=== PATIENT | female | born 1965 | race Hispanic/Latino ===

== ENCOUNTER 2025-03-08 20:21 | Observation (INO) | payer OTHER, SELFPAY ==
--- NOTE | ~2025-03-08 | NM_ITS ---
EXAMINATION: NM pulmonary perfusion DATE: 03/09/2025 14:10 INDICATION: Elevated d-dimer TECHNIQUE: 5.5 mCi Tc-99m MAA by intravenous route. Scintigraphic images of the chest were obtained. COMPARISON: Chest radiograph dated 03/08/2025 FINDINGS: There is relatively homogeneous perfusion throughout the lungs. No discrete perfusion defect identifi ed. Cardiomegaly. IMPRESSION: 1. No perfusion defects. Very low probability for pulmonary embolism. 2. Cardiomegaly. Reviewed, dictated and finalized at location A.
--- NOTE | ~2025-03-08 | US_ITS ---
US venous doppler [facility] - 03/09/2025 14:18 CDT History: 59 years old Female with bilateral lower extremity pain and swelling. Real-time sonographic images of the bilateral lower extremity venous system were obtained. Color Dop pler sonography and spectral waveform analysis were performed. No prior studies for comparison. The bilateral sapheno-femoral junctions are patent. The bilateral common femoral, superficial femor al, popliteal and posterior tibial veins are compressible and without evidence of echogenic thrombus . Impression: No evidence of deep venous thrombosis Reviewed, dictated and finalized at location A. Impression: No evidence of deep venous thrombosis
--- NOTE | ~2025-03-08 | XR_ITS ---
CHEST RADIOGRAPH CLINICAL HISTORY: sob . COMPARISON: None available TECHNIQUE: Single portable view of the chest. FINDINGS The cardiomediastinal silhouette is unremarkable. Increased interstitial markings are identified bilaterally, findings suggesting moderate pulmonary va scular congestion. Blunting of the right costophrenic sulcus suggesting a small right-sided pleural effusion. The remainder of the lungs are clear. IMPRESSION: Moderate pulmonary vascular congestion with a small right-sided pleural effusion. Reviewed, dictated and finalized at location A. IMPRESSION: Moderate pulmonary vascular congestion with a small right-sided pleural effusio n.
[2025-03-08 20:23] VITALS: BP 165/57; PULSE 66; RESP 20; TEMP 36.6; O2SAT 98
--- NOTE | 2025-03-08 20:24 | ECG_ITS ---
Test Date: 2025-03-08 20:31:43 Measurements Intervals [place] Rate: 64 P: 21 GA: 140 QRS: 37 QRSD: 89 T: 136 QT: 361 QTc: 373 Interpretive Statements SINUS RHYTHM POSSIBLE INFERIOR MYOCARDIAL INFARCTION , PROBABLY OLD BORDERLINE ST-T WAVE ABNORMALITY- ANTEROLAT/HIGH LAT LEADS BASELINE ARTIFACT- I, AVL, V1-V2 ABNORMAL ECG No previous ECG available for comparison Electronically Signed On 03-09-2025 06:09:20 CDT by Johnny Robles D.O.
--- NOTE | 2025-03-08 20:39 | ED.GENADULT ---
HPI - General Adult General Chief complaint: Shortness of Breath/Dyspnea Stated complaint: SOB; CHF HISTORY History of Present Illness HPI narrative: 59-year-old female presents to the emergency department for evaluation for worsening exertional shortness of breath and intermittent chest pain. Patient reports he does have a primary history of CHF and lower extremity edema. Patient reports she has had worsening shortness breath over the course of the last few days and worsening lower extremity swelling over the last 3 days as well. Patient is primary Slovenian-speaking and some prefers to translate, translation services were offered but they declined. Related Data Home Medications ?Medication ?Instructions ?Recorded ?Confirmed ?Last Taken ?Type aspirin 81 mg chewable tablet 81 mg PO DAILY 03/08/25 03/08/25 Unknown History (Aspirin Childrens) atorvastatin 40 mg tablet 40 mg PO QPM 03/08/25 03/08/25 Unknown History blood sugar diagnostic ([facility] 03/08/25 03/08/25 Unknown History Verio test strips) calcitriol 0.25 mcg capsule 0.25 mcg PO .Q MWF 03/08/25 03/08/25 03/08/25 08:00 History 0.25 mcg carvedilol 25 mg tablet 25 mg PO BID 03/08/25 03/08/25 Unknown History ergocalciferol (vitamin D2) 1,250 1,250 mcg PO WEEKLY 03/08/25 03/08/25 Unknown History mcg (50,000 unit) capsule famotidine 20 mg tablet 20 mg PO BID 03/08/25 03/08/25 Unknown History furosemide 40 mg tablet 40 mg PO DAILY 03/08/25 03/08/25 Unknown History gabapentin 100 mg capsule 100 mg PO BID 03/08/25 03/08/25 Unknown History hydralazine 50 mg tablet 75 mg PO TID 03/08/25 03/08/25 Unknown History hydroxyzine HCl 25 mg tablet 25 mg PO Q6H PRN itching 03/08/25 03/08/25 Unknown History isosorbide mononitrate 60 mg 60 mg PO DAILY 03/08/25 03/08/25 Unknown History tablet,extended release 24 hr [facility] Del[facility] 03/08/25 03/08/25 Unknown History Plus Lancet) losartan 100 mg tablet 25 mg PO DAILY 03/08/25 03/08/25 Unknown History ondansetron 4 mg disintegrating 4 mg PO Q6H PRN nausea and vomiting 03/08/25 03/08/25 Unknown History tablet pantoprazole 40 mg tablet,delayed 40 mg PO DAILY 03/08/25 03/08/25 Unknown History release Allergies Allergy/AdvReac Type Severity Reaction Status Date / Time No Known Allergies Allergy Verified 03/08/25 20:48 Review of Systems Review of Systems: All systems reviewed & are unremarkable except as noted in HPI and below PMFSH Family History Family History (Updated 03/08/25 @ 23:13 by Mani Xiong RN) Other No significant past medical history Social History Social History Smoking status: Never smoker Alcohol intake: never Substance use: never Do You Feel Safe in your Home?: Yes Lack of Transportation: No Lack of Food: Never True Current Housing: I Have Housing Concerned About Future Housing: No Difficulty Paying Gas/Electric Bills: No Difficulty Paying for Meds: No Currently Unemployed: No Education: Decline to Answer Difficulty w/ Childcare or Family Care: No Spiritual care concerns: No Exam Narrative: APPEARANCE: Well appearing, no pain, no distress, well-nourished. HEAD: normocephalic, atraumatic. EYES: PERRLA/EOMI, conjunctivae clear. NOSE: Normal no drainage EARS:TMS clear with good light reflex. THROAT: Pharynx clear, no exudate. NECK: Supple. No adenopathy, no masses. RESPIRATORY: Airway patent, respirations nonlabored. Clear to auscultation bilaterally, no rales, rhonchi, wheezing. CARDIOVASCULAR: Regular rate and rhythm without murmurs rubs or gallops. ABDOMINAL: Soft, nontender, nondistended, normal bowel sounds MUSCULOSKELETAL: +2 lower extremity edema NEURO: Alert. Cranial nerves II through XII intact. Good gait. Good coordination SKIN: Warm, dry. Normal Color Course Vital Signs Vital signs: Vital Signs Temperature 98 F 03/08/25 20:23 Pulse Rate 66 03/08/25 20:23 Respiratory Rate 20 03/08/25 20:23 Blood Pressure 165/57 H 03/08/25 20:23 Pulse Oximetry 98 03/08/25 20:23 Oxygen Delivery Room Air 03/08/25 20:23 Temperature 98.3 F 03/09/25 00:00 Pulse Rate 66 03/09/25 00:00 Respiratory Rate 17 03/09/25 00:00 Blood Pressure 118/55 L 03/09/25 00:00 Pulse Oximetry 94 03/09/25 00:00 Oxygen Delivery Room Air 03/08/25 23:36 Medical Decision Making [facility] Narrative Medical decision making narrative: 59-year-old female present to the emergency department for evaluation for exertional shortness of breath lower extremity edema with history of CHF. Patient is currently afebrile with no leukocytosis hemoglobin of 9.6 with no known baseline on file. Patient's INR is 1.1. Patient has a creatinine of 3.55 any BUN of 43. Patient does have an elevated troponin at 0.036 with no evidence of acute STEMI on her EKG. [place] [address]. Patient's albumin is 2.7. Patient's chest x-ray does show evidence of pulmonary vascular congestion I small right-sided pleural effusion. Patient was treated with IV Lasix emergency department and case will be discussed with hospitalist for admission. Differential Diagnosis Differential Diagnosis: Pneumonia, CHF Vital Signs Vital Signs: Vital Signs Temperature 98 F 03/08/25 20:23 Pulse Rate 66 03/08/25 20:23 Respiratory Rate 20 03/08/25 20:23 Blood Pressure 165/57 H 03/08/25 20:23 Pulse Oximetry 98 03/08/25 20:23 Oxygen Delivery Room Air 03/08/25 20:23 Temperature 98.3 F 03/09/25 00:00 Pulse Rate 66 03/09/25 00:00 Respiratory Rate 17 03/09/25 00:00 Blood Pressure 118/55 L 03/09/25 00:00 Pulse Oximetry 94 03/09/25 00:00 Oxygen Delivery Room Air 03/08/25 23:36 Lab Data Lab results reviewed: Yes I reviewed the patient's lab results. 03/08/25 20:49 03/08/25 20:49 Labs: Lab Results 03/08/25 03/08/25 03/08/25 Range/Units 20:49 20:49 20:49 WBC 9.0 (4.5-10.0) K/mm3 RBC 3.65 L (4.2-5.4) M/mm3 Hgb 9.6 L (12.0-15.0) g/dL Hct 31.1 L (37.0-47.0) % MCV 85.2 (80-100) fl MCH 26.3 (26-34) pg MCHC 30.9 L (32-36) g/dl RDW 16.1 H (11.5-14.5) % Plt Count 274 (150-375) k/mm3 MPV 10.4 (7.4-10.4) fl Immature Gran % (Auto) 0.2 (0-0.5) % Neut % (Auto) 66.9 (45.5-73.1) % Lymph % (Auto) 21.1 (18.3-44.2) % Colbert % (Auto) 7.6 (2.6-8.5) % Eos % (Auto) 3.9 (0-4.4) % Baso % (Auto) 0.3 (0.2-1.2) % Lymph # (Auto) 1.90 (0.9-3.2) K/mm3 Colbert # (Auto) 0.7 H (0.1-0.6) K/mm3 Eos # (Auto) 0.4 H (0-0.3) K/mm3 Baso # (Auto) 0.0 (0.0-0.1) K/mm3 Abs Immat Gran (auto) 0.02 (0.00-0.031) K/mm3 Absolute Neuts (auto) 6.0 (1.3-6.7) K/mm3 Absolute Nucleated RBC 0.000 (0.0-0.012) K/mm3 Nucleated RBC % 0.0 (0.0-0.2) % PT 14.5 (11.1-14.7) Seconds INR 1.1 APTT 29.3 (22.3-36.8) Seconds Sodium 134 L (137-145) mmol/L Potassium 3.9 (3.4-5.0) mmol/L Chloride 107 (98-107) mmol/L Carbon Dioxide 23 (22-30) mmol/L Anion Gap 4 (4-12) mmol/L BUN 43 H (7-17) mg/dL Creatinine 3.55 H (0.7-1.0) mg/dL Estim Creat Clear Calc Not Reportable Estimated GFR 13 L (59 - ) Glucose 149 H (65-110) mg/dL Calcium 8.8 (8.4-10.2) mg/dL Total Bilirubin 0.2 (0.2-1.3) mg/dL AST 20 (14-36) U/L ALT 13 (6-35) U/L Alkaline Phosphatase 91 (38-126) U/L Troponin I 0.036 H* Cancelled (0.000-0.034) ng/mL NT-Pro-B Natriuret Pep 04329 H Cancelled (19.9-100) pg/mL Total Protein 5.6 L (6.3-8.2) g/dL Albumin 2.7 L (3.5-5.1) g/dL Influenza A (RT-PCR) (Negative) Influenza B (RT-PCR) (Negative) RSV (RT-PCR) (Negative) SARS-CoV-2 RNA (RT-PCR) (Negative) 03/08/25 Range/Units 21:15 WBC (4.5-10.0) K/mm3 RBC (4.2-5.4) M/mm3 Hgb (12.0-15.0) g/dL Hct (37.0-47.0) % MCV (80-100) fl MCH (26-34) pg MCHC (32-36) g/dl RDW (11.5-14.5) % Plt Count (150-375) k/mm3 MPV (7.4-10.4) fl Immature Gran % (Auto) (0-0.5) % Neut % (Auto) (45.5-73.1) % Lymph % (Auto) (18.3-44.2) % Colbert % (Auto) (2.6-8.5) % Eos % (Auto) (0-4.4) % Baso % (Auto) (0.2-1.2) % Lymph # (Auto) (0.9-3.2) K/mm3 Colbert # (Auto) (0.1-0.6) K/mm3 Eos # (Auto) (0-0.3) K/mm3 Baso # (Auto) (0.0-0.1) K/mm3 Abs Immat Gran (auto) (0.00-0.031) K/mm3 Absolute Neuts (auto) (1.3-6.7) K/mm3 Absolute Nucleated RBC (0.0-0.012) K/mm3 Nucleated RBC % (0.0-0.2) % PT (11.1-14.7) Seconds INR APTT (22.3-36.8) Seconds Sodium (137-145) mmol/L Potassium (3.4-5.0) mmol/L Chloride (98-107) mmol/L Carbon Dioxide (22-30) mmol/L Anion Gap (4-12) mmol/L BUN (7-17) mg/dL Creatinine (0.7-1.0) mg/dL Estim Creat Clear Calc Estimated GFR (59 - ) Glucose (65-110) mg/dL Calcium (8.4-10.2) mg/dL Total Bilirubin (0.2-1.3) mg/dL AST (14-36) U/L ALT (6-35) U/L Alkaline Phosphatase (38-126) U/L Troponin I (0.000-0.034) ng/mL NT-Pro-B Natriuret Pep (19.9-100) pg/mL Total Protein (6.3-8.2) g/dL Albumin (3.5-5.1) g/dL Influenza A (RT-PCR) Negative (Negative) Influenza B (RT-PCR) Negative (Negative) RSV (RT-PCR) Negative (Negative) SARS-CoV-2 RNA (RT-PCR) Negative (Negative) Imaging Data Radiologist's impression: Impressions Chest X-Ray 03/08/25 21:18 IMPRESSION: Moderate pulmonary vascular congestion with a small right-sided pleural effusion. Discharge Plan Discharge Clinical Impression: Congestive heart failure, Acute dyspnea, Elevated troponin Patient Disposition: Still a Patient Condition: Serious
[2025-03-08 20:45] VITALS: O2SAT 97
[2025-03-08] MEDS: ASPIRIN 81 MG CHEWABLE TABLET 324 MG PO (20:48)
[2025-03-08 21:01] LABS: Basophils Percent Auto 0.3 % (0.2-1.2); Eosinophils Absolute Auto 0.4 K/mm3 (0-0.3); Eosinophils Percent Auto 3.9 % (0-4.4); Hematocrit 31.1 % (37.0-47.0); Hemoglobin 9.6 g/dL (12.0-15.0); Immature Granulocyte Absolute 0.02 K/mm3 (0.00-0.031); Immature Granulocyte Percent A 0.2 % (0-0.5); Lymphocytes Percent Auto 21.1 % (18.3-44.2); Mean Corpuscular HGB Conc 30.9 g/dl (32-36); Mean Corpuscular Hemoglobin 26.3 pg (26-34); Mean Corpuscular Volume 85.2 fl (80-100); Mean Platelet Volume 10.4 fl (7.4-10.4); Monocytes Absolute Auto 0.7 K/mm3 (0.1-0.6); Monocytes Percent Auto 7.6 % (2.6-8.5); Neutrophils Percent Auto 66.9 % (45.5-73.1); Platelet Count Result 274 k/mm3 (150-375); Red Blood Count 3.65 M/mm3 (4.2-5.4); Red Cell Distribution Width 16.1 % (11.5-14.5)
[2025-03-08 21:12] LABS: Alanine Aminotransferase 13 U/L (6-35); Albumin Level 2.7 g/dL (3.5-5.1); Alkaline Phosphatase 91 U/L (38-126); Anion Gap 4 mmol/L (4-12); Aspartate Amino Transferase 20 U/L (14-36); Bilirubin,Total 0.2 mg/dL (0.2-1.3); Blood Urea Nitrogen 43 mg/dL (7-17); Calcium 8.8 mg/dL (8.4-10.2); Carbon Dioxide 23 mmol/L (22-30); Chloride 107 mmol/L (98-107); Estimated Glomerular Filt Rate 13; Glucose 149 mg/dL (65-110); Potassium 3.9 mmol/L (3.4-5.0); Sodium 134 mmol/L (137-145); Total Protein 5.6 g/dL (6.3-8.2)
[2025-03-08 21:17] LABS: INR 1.1; Prothrombin Time 14.5 Seconds (11.1-14.7)
[2025-03-08 21:18] LABS: Partial Thromboplastin Time 29.3 Seconds (22.3-36.8)
[2025-03-08] MEDS: FUROSEMIDE INJ 40 MG/4 ML VIAL IV PUSH (21:21)
[2025-03-08 21:26] LABS: NT Pro B Type Natriuretic Pept 24000 pg/mL (19.9-100); Troponin I 0.036 ng/mL (0.000-0.034)
[2025-03-08 21:59] LABS: Influenza A QL RT-PCR Negative (Negative); Influenza B QL RT-PCR Negative (Negative); RSV RNA, RT-PCR Negative (Negative); SARS-CoV-2 RNA PCR Negative (Negative)
[2025-03-08 22:43] VITALS: BP 155/75; PULSE 63; RESP 17; TEMP 36.6; O2SAT 97
[2025-03-08 23:10] VITALS: BMI 34.6
--- NOTE | 2025-03-08 23:10 | ADMGEN ---
This patient, Suzy Lion, was admitted to IMU Room 214-01. Patient/family oriented to hospital policies and general routines including ID bracelet, bed and alarms, visiting hours, pain management, procedures, bathroom and other care routines, personal items, smoking policy, room service/diet, and visiting hours. Information on how to activate the Rapid Response Team has been discussed. Patient/Family are encouraged to report perceived risks to care and to ask questions if they do not understand what they are told or what they should do.
[2025-03-08 23:11] VITALS: BP 181/67; PULSE 64; RESP 17; TEMP 36.8; O2SAT 98
[2025-03-08 23:36] VITALS: PULSE 64; RESP 17; O2SAT 98
[2025-03-09] VITALS (17 sets, daily range): BP systolic 118–195; BP diastolic 54–75; PULSE 58–97; RESP 16–20; TEMP 36.4–36.9; O2SAT 94–97
--- NOTE | 2025-03-09 | ECHO_ITS ---
Patient Info Name: Suzy Lion Age: 59 years : 02/14/1966 Gender: Female Ht: 60 in Wt: 177 lbs BSA: 1.88 m2 HR: 56 bpm BP: 144 / 54 mmHg Technical Quality: Good Exam Date: 03/09/2025 12:21 PM Patient Status: I Admit Date: 03/08/2025 Exam Type: CA echo dop color flow w con Complete two-dimensional, color flow and Doppler transthoracic echocardiogram is performed with contrast to opacify the left ventricle and to improve the deliniation of the left ventricle endocardial borders. Staff Referring Physician: Janet Ch Snack Steward: Zully Thomas Attending Provider: Janet Ch Contrast/Agitated Saline Contrast/Ag. Saline: Definity Amount: 2.00 ml Administered By: Zully Thomas Existing IV Access: Yes IV Access Condition: patent with no signs of infiltration Summary 1. Left ventricular chamber dimension is normal. 2. Left ventricular systolic function is normal, estimated at 50-55. 3. There is mildly increased left ventricular wall thickness. 4. The left ventricular diastolic function is grade I diastolic dysfunction. 5. Right ventricular systolic function is normal. 6. There is mild mitral valve regurgitation. 7. There is mild tricuspid valve regurgitation. 8. There is small pericardial effusion. Left Ventricle Left ventricular chamber dimension is normal. Left ventricular systolic function is normal, estimated at 50-55. There is mildly increased left ventricular wall thickness. The left ventricular diastolic function is grade I diastolic dysfunction. Right Ventricle Right ventricular chamber dimension is normal. Right ventricular systolic function is normal. Left Atria Left atrial chamber dimension is normal. Right Atria Right atrial chamber dimension is normal. Atrial Septum Intact interatrial septum visualized by color flow imaging. Aortic Valve The aortic valve is trileaflet. There is no aortic valve stenosis. There is no aortic valve regurgitation. Pulmonic Valve The pulmonic valve is not well visualized. There is trace pulmonic regurgitation. Mitral Valve There is mild mitral valve regurgitation. Tricuspid Valve There is mild tricuspid valve regurgitation. Pericardium/Pleural There is small pericardial effusion. Inferior Vena Cava Dilated inferior vena cava with >50% collapse upon inspiration consistent with elevated right atrial pressure, 8 mmHg. Aorta The aortic root size at the sinus of Valsalva is normal. Left Ventricular Outflow Tract Name Value Normal LVOT 2D LVOT Diameter 1.7 cm LVOT Doppler LVOT Peak Velocity 133 cm/s LVOT Peak Gradient 7 mmHg LVOT Mean Gradient 4 mmHg LVOT VTI 36 cm LVOT VTI/AV VTI Ratio 0.6 LVOT Stroke Volume 83 ml LVOT CO 4.3 l/min LVOT CI 2.3 l/min/m2 Pulmonic Valve Name Value Normal RVOT Doppler RVOT Peak Velocity 74 cm/s RVOT Peak Gradient 2 mmHg PV Doppler PV Peak Velocity 116 cm/s PV Peak Gradient 5 mmHg Mitral Valve Name Value Normal MV Diastolic Function MV E Peak Velocity 110 cm/s MV A Peak Velocity 94 cm/s MV E/A 1.2 MV Decel Time (PW) 192 ms MV Annular TDI MV E/e' (Septal) 18.8 MV E/e' (Lateral) 18.3 MV E/e' (Average) 18.6 Tricuspid Valve Name Value Normal TV Regurgitation Doppler TR Peak Velocity 266 cm/s TR Peak Gradient 28 mmHg Estimated PAP/RSVP RA Pressure 8 mmHg <=5 PA Systolic Pressure 36 mmHg <36 RV Systolic Pressure 36 mmHg <36 Aortic Valve Name Value Normal AV Doppler AV Peak Velocity 206 cm/s AV Peak Gradient 16 mmHg AV Mean Gradient 9 mmHg AV VTI 56 cm AV Area (Cont Eq VTI) 1.5 cm2 >=3.0 AV Area (Cont Eq Kelvin) 1.5 cm2 AV DI (Kelvin) 0.64 AV Regurgitation 2D LVOT Area 2.3 cm2 Ventricles Name Value Normal LV Dimensions 2D/MM IVS Diastolic Thickness (2D) 1.2 cm 0.6-1.0 LVID Diastole (2D) 5.3 cm 3.8-5.2 LVIW Diastolic Thickness (2D) 1.2 cm 0.6-0.9 LVID Systole (2D) 3.5 cm 2.2-3.5 LVOT Diameter 1.7 cm LV Mass (2D Cubed) 256.21 g 67.00-162.00 LV Mass Index (2D Cubed) 136 g/m2 43-95 Relative Wall Thickness (2D) 0.47 <=0.42 LV Fractional Shortening/Ejection Fraction 2D/MM LV Fractional Shortening (2D) 33 % 27-45 LV EF (2D Teichholz) 62 % LV Diastolic Volume (4C MOD) 131 ml LV EF (4C MOD) 35 % LV Diastolic Volume (2C MOD) 171 ml LV EF (2C MOD) 41 % LV Diastolic Volume (BP MOD) 149 ml 46-106 LV Diastolic Volume Index (BP MOD) 79 ml/m2 29-61 LV Systolic Volume (BP MOD) 94 ml 14-42 LV Systolic Volume Index (BP MOD) 50 ml/m2 8-24 LV EF (BP MOD) 37 % 54-74 LV Diastolic Length (4C) 9.3 cm LV Systolic Length (4C) 9.2 cm LV Stroke Volume (4C MOD) 46 ml Atria Name Value Normal LA Dimensions LA Volume (4C A-L) 55 ml LA Volume (BP A-L) 62 ml RA Dimensions RA Systolic Major [place] Length (4C) 6.0 cm 2.2-2.8 RA Area (4C) 20.1 cm2 <=18.0 Report Signatures
--- NOTE | 2025-03-09 07:29 | P.HP_ITS ---
H&P: HPI History of Present Illness Date/Time: 03/09/25 07:29 Chief Complaint: SOB/Chest pain Narrative: Patient with history of CHF HTN, HLD, GERD, CKD presented to hospital because of shortness of breath. Patient notes she suddenly started to have shortness of breath about 2 days ago and has been getting worse. She has been having dry cough. Has been having chills but denies any fever. Denies any orthopnea or PND Patient also complaining of bilateral leg swelling for a long time but has been worsening in past 3 days. In the ER lab test WBC 9, hemoglobin 9.6, creatinine 3.55, troponin 0.036 and proBNP 87173. Chest x-ray concerning for pulmonary edema. Treatment started with Lasix. Patient was admitted for further management at time of my exam she is feeling better. her breathing is getting better. denies chest pain, abd pain, N/V. will get Echo. continue Lasix. elevated D Dimer will get VQ scan Review of Systems Review of Systems: All systems reviewed & are unremarkable except as noted in HPI and below [facility] Family History Family History (Updated 03/08/25 @ 23:13 by Mani Xiong RN) Other No significant past medical history Social History Social History Smoking status: Never smoker Alcohol intake: never Substance use: never Do You Feel Safe in your Home?: Yes Lack of Transportation: No Lack of Food: Never True Current Housing: I Have Housing Concerned About Future Housing: No Difficulty Paying Gas/Electric Bills: No Difficulty Paying for Meds: No Currently Unemployed: No Education: Decline to Answer Difficulty w/ Childcare or Family Care: No Spiritual care concerns: No Meds Home Medications and Allergies Home Medications ?Medication ?Instructions ?Recorded ?Confirmed ?Type aspirin 81 mg chewable tablet 81 mg PO DAILY 03/08/25 03/08/25 History (Aspirin Childrens) atorvastatin 40 mg tablet 40 mg PO QPM 03/08/25 03/08/25 History blood sugar diagnostic ([facility] 03/08/25 03/08/25 History Verio test strips) calcitriol 0.25 mcg capsule 0.25 mcg PO .Q MWF 03/08/25 03/08/25 History carvedilol 25 mg tablet 25 mg PO BID 03/08/25 03/08/25 History ergocalciferol (vitamin D2) 1,250 1,250 mcg PO WEEKLY 03/08/25 03/08/25 History mcg (50,000 unit) capsule famotidine 20 mg tablet 20 mg PO BID 03/08/25 03/08/25 History furosemide 40 mg tablet 40 mg PO DAILY 03/08/25 03/08/25 History gabapentin 100 mg capsule 100 mg PO BID 03/08/25 03/08/25 History hydralazine 50 mg tablet 75 mg PO TID 03/08/25 03/08/25 History hydroxyzine HCl 25 mg tablet 25 mg PO Q6H PRN itching 03/08/25 03/08/25 History isosorbide mononitrate 60 mg 60 mg PO DAILY 03/08/25 03/08/25 History tablet,extended release 24 hr lancets 33 gauge ([facility] Delica 03/08/25 03/08/25 History Plus Lancet) losartan 100 mg tablet 25 mg PO DAILY 03/08/25 03/08/25 History ondansetron 4 mg disintegrating 4 mg PO Q6H PRN nausea and vomiting 03/08/25 03/08/25 History tablet pantoprazole 40 mg tablet,delayed 40 mg PO DAILY 03/08/25 03/08/25 History release Allergies Allergy/AdvReac Type Severity Reaction Status Date / Time No Known Allergies Allergy Verified 03/08/25 20:48 Vital Signs Vital Signs - 24 hr 03/08/25 20:23 03/08/25 20:45 03/08/25 22:43 Temperature 98 F 97.8 F Pulse Rate 66 63 Respiratory Rate 20 17 Blood Pressure 165/57 H 155/75 H Pulse Oximetry 98 97 97 Oxygen Delivery Room Air Room Air 03/08/25 23:11 03/08/25 23:36 03/09/25 00:00 Temperature 98.2 F 98.3 F Pulse Rate 64 64 65 Respiratory Rate 17 17 17 Blood Pressure 181/67 H 118/55 L Pulse Oximetry 98 98 94 Oxygen Delivery Room Air 03/09/25 00:00 03/09/25 02:00 03/09/25 03:44 Temperature 97.7 F Pulse Rate 66 62 62 Respiratory Rate 17 Blood Pressure 144/54 H Pulse Oximetry 95 Oxygen Delivery 03/09/25 03:46 03/09/25 04:00 03/09/25 06:00 Temperature Pulse Rate 62 58 L 62 Respiratory Rate 17 Blood Pressure Pulse Oximetry 95 Oxygen Delivery Room Air Exam Narrative: APPEARANCE: Well appearing, no pain, no distress, well-nourished. HEAD: normocephalic, atraumatic. EYES: PERRLA/EOMI, conjunctivae clear. NOSE: Normal no drainage EARS:TMS clear with good light reflex. THROAT: Pharynx clear, no exudate. NECK: Supple. No adenopathy, no masses. RESPIRATORY: Airway patent, respirations nonlabored. Clear to auscultation bi laterally, no rales, rhonchi, wheezing. CARDIOVASCULAR: Regular rate and rhythm without murmurs rubs or gallops. ABDOMINAL: Soft, nontender, nondistended, normal bowel sounds MUSCULOSKELETAL: +2 lower extremity edema NEURO: Alert. Cranial nerves II through XII intact. Good gait. Good coordination SKIN: Warm, dry. Normal Color H&P: Results Labs Labs: Short CBC 03/08/25 Range/Units 20:49 WBC 9.0 (4.5-10.0) K/mm3 Hgb 9.6 L (12.0-15.0) g/dL Hct 31.1 L (37.0-47.0) % Plt Count 274 (150-375) k/mm3 BMP 03/08/25 20:49 Sodium 134 L Potassium 3.9 Chloride 107 Carbon Dioxide 23 BUN 43 H Creatinine 3.55 H Glucose 149 H Calcium 8.8 Cardiac Enzymes 03/08/25 03/08/25 Range/Units 20:49 20:49 Troponin I 0.036 H* Cancelled (0.000-0.034) ng/mL Liver Function 03/08/25 Range/Units 20:49 Total Bilirubin 0.2 (0.2-1.3) mg/dL AST 20 (14-36) U/L ALT 13 (6-35) U/L Alkaline Phosphatase 91 (38-126) U/L Albumin 2.7 L (3.5-5.1) g/dL Assessment and Plan Assessment and plan (1) Elevated troponin: Code(s): R79.89 - Other specified abnormal findings of blood chemistry Status: Acute (2) Acute dyspnea: Code(s): R06.00 - Dyspnea, unspecified Status: Acute (3) Congestive heart failure: Code(s): I50.9 - Heart failure, unspecified Status: Acute (4) CKD (chronic kidney disease): Code(s): N18.9 - Chronic kidney disease, unspecified Status: Acute (5) Leg swelling: Code(s): M79.89 - Other specified soft tissue disorders Status: Acute (6) SOB (shortness of breath): Code(s): R06.02 - Shortness of breath Status: Acute (7) Hyponatremia: Code(s): E87.1 - Hypo-osmolality and hyponatremia Status: Acute (8) Elevated d-dimer: Code(s): R79.89 - Other specified abnormal findings of blood chemistry Status: Acute Plan SOb acute on chronic CHF elevated BNP CXR pulmonray edema Will get ECHO LAsix Daily weight , Intake and output Continue to monitor Leg swelling secondary to CHF Will get lower ext dopleer to R/O dvt in setting of elevated Ddimer Continue to monitor Elevated D Dimer could be normal in stting of kidney failure Will get lower ext dopller and V q scan CKD renally adjust meds
[2025-03-09] MEDS: ISOSORBIDE MONONITRATE 60 MG TAB.ER.24H PO (08:25)
[2025-03-09] MEDS: GABAPENTIN 100 MG CAPSULE PO ×2 (08:25→17:26)
[2025-03-09] MEDS: FUROSEMIDE INJ 40 MG/4 ML VIAL IV PUSH ×2 (08:25→20:20)
[2025-03-09] MEDS: carvediloL 25 MG TABLET PO ×2 (08:25→17:26)
[2025-03-09] MEDS: ASPIRIN 81 MG CHEWABLE TABLET PO (08:25)
[2025-03-09] MEDS: PANTOPRAZOLE 40 MG TABLET PO (08:25)
[2025-03-09 11:42] LABS: D Dimer 0.56 ug/mL (<0.48)
[2025-03-09] MEDS: PERFLUTREN LIPID MICROSPHERES 1.5 ML VIAL DILUTED TO 10 ML TOTAL VOLUME IV PUSH (12:00)
--- NOTE | 2025-03-09 13:04 | IVDEFINITY ---
Prior to administration of IV Definity the patient was educated on the risks and benefits of the imaging enhancing agent including potential adverse side effects. The patient verbalized understanding. Allergies were verified. No exclusion criteria were identified and at least one of the following inclusion criteria were met: 1) physician request, 2) patient technically difficult to image (per the [place] [employer] guidelines of two or more segments not discernable within the apical view), or 3) questionable left ventricular function. ?
[2025-03-09] MEDS: hydrALAZINE HCL 25 MG TABLET 75 MG PO (17:25)
[2025-03-09] MEDS: FAMOTIDINE 20 MG TABLET PO (17:26)
[2025-03-09] MEDS: ATORVASTATIN 40 MG TABLET PO (17:26)
[2025-03-10] VITALS (17 sets, daily range): BP systolic 120–139; BP diastolic 43–59; PULSE 61–69; RESP 17–20; TEMP 36.5–36.8; O2SAT 90–94
[2025-03-10] MEDS: hydrALAZINE HCL 20 MG/ML VIAL 10 MG IV PUSH (00:22)
[2025-03-10 04:32] LABS: Hematocrit 30.4 % (37.0-47.0); Hemoglobin 9.3 g/dL (12.0-15.0); Mean Corpuscular HGB Conc 30.6 g/dl (32-36); Mean Corpuscular Hemoglobin 26.4 pg (26-34); Mean Corpuscular Volume 86.4 fl (80-100); Mean Platelet Volume 11.1 fl (7.4-10.4); Platelet Count Result 255 k/mm3 (150-375); Red Blood Count 3.52 M/mm3 (4.2-5.4); Red Cell Distribution Width 15.9 % (11.5-14.5); White Blood Count 8.9 K/mm3 (4.5-10.0)
[2025-03-10 04:52] LABS: Anion Gap 2 mmol/L (4-12); Blood Urea Nitrogen 43 mg/dL (7-17); Calcium 8.4 mg/dL (8.4-10.2); Carbon Dioxide 24 mmol/L (22-30); Chloride 106 mmol/L (98-107); Estimated CRCL calculation 15 ml/min; Estimated Glomerular Filt Rate 14; Glucose 88 mg/dL (65-110); Potassium 3.7 mmol/L (3.4-5.0); Sodium 132 mmol/L (137-145)
[2025-03-10] MEDS: PANTOPRAZOLE 40 MG TABLET PO (07:56)
[2025-03-10] MEDS: ASPIRIN 81 MG CHEWABLE TABLET PO (07:56)
[2025-03-10] MEDS: ISOSORBIDE MONONITRATE 60 MG TAB.ER.24H PO (07:56)
[2025-03-10] MEDS: carvediloL 25 MG TABLET PO ×2 (07:56→17:14)
[2025-03-10] MEDS: FUROSEMIDE INJ 40 MG/4 ML VIAL IV PUSH ×2 (07:56→20:08)
[2025-03-10] MEDS: GABAPENTIN 100 MG CAPSULE PO ×2 (07:56→17:14)
[2025-03-10] MEDS: hydrALAZINE HCL 25 MG TABLET 75 MG PO (07:56)
[2025-03-10] MEDS: FAMOTIDINE 20 MG TABLET PO ×2 (07:57→17:14)
[2025-03-10] MEDS: calcitrioL 0.25 MCG CAPSULE PO (07:58)
--- NOTE | 2025-03-10 10:30 | PM.IMPN ---
Progress Note: A&P Assessment and Plan (1) Elevated troponin: Code(s): R79.89 - Other specified abnormal findings of blood chemistry Status: Acute (2) Acute dyspnea: Code(s): R06.00 - Dyspnea, unspecified Status: Acute (3) Congestive heart failure: Code(s): I50.9 - Heart failure, unspecified Status: Acute (4) CKD (chronic kidney disease): Code(s): N18.9 - Chronic kidney disease, unspecified Status: Acute (5) Leg swelling: Code(s): M79.89 - Other specified soft tissue disorders Status: Acute (6) SOB (shortness of breath): Code(s): R06.02 - Shortness of breath Status: Acute (7) Hyponatremia: Code(s): E87.1 - Hypo-osmolality and hyponatremia Status: Acute (8) Elevated d-dimer: Code(s): R79.89 - Other specified abnormal findings of blood chemistry Status: Acute Plan SOb acute on chronic Diastolic CHF elevated BNP CXR pulmonray edema ECHO G1D LAsix Daily weight , Intake and output Continue to monitor Leg swelling secondary to CHF lower ext Doppler neg for DVt Continue to monitor Elevated D Dimer could be normal in setting of kidney failure lower ext dopller and V q scan neg CKD renally adjust meds GERD PPI Subjective Date/time seen: 03/10/25 10:30 Interval history: Patient with history of CHF HTN, HLD, GERD, CKD presented to hospital because of shortness of breath. Patient notes she suddenly started to have shortness of breath about 2 days ago and has been getting worse. She has been having dry cough. Has been having chills but denies any fever. Denies any orthopnea or PND Patient also complaining of bilateral leg swelling for a long time but has been worsening in past 3 days. In the ER lab test WBC 9, hemoglobin 9.6, creatinine 3.55, troponin 0.036 and proBNP 42496. Chest x-ray concerning for pulmonary edema. Treatment started with Lasix. Patient was admitted for further management at time of my exam she is feeling better. her breathing is getting better. denies chest pain, abd pain, N/V. will get Echo. continue Lasix. elevated D Dimer will get VQ scan 03/10/25 Patient was seen and examined at bedside. she is feeling better. denies any chest pian, SOb, Abd pain,N/V. Echo showed G1D. Lower ext Doppler and VQ scan Neg. Will continue lasix. Review of Systems Review of Systems: All systems reviewed & are unremarkable except as noted in HPI and below Exam Narrative: APPEARANCE: Well appearing, no pain, no distress, well-nourished. HEAD: normocephalic, atraumatic. EYES: PERRLA/EOMI, conjunctivae clear. NOSE: Normal no drainage EARS:TMS clear with good light reflex. THROAT: Pharynx clear, no exudate. NECK: Supple. No adenopathy, no masses. RESPIRATORY: Airway patent, respirations nonlabored. Clear to auscultation bilaterally, no rales, rhonchi, wheezing. CARDIOVASCULAR: Regular rate and rhythm without murmurs rubs or gallops. ABDOMINAL: Soft, nontender, nondistended, normal bowel sounds MUSCULOSKELETAL: +2 lower extremity edema NEURO: Alert. Cranial nerves II through XII intact. Good gait. Good coordination SKIN: Warm, dry. Normal Color Objective Data Vital Signs Vital Signs: Vital Signs - 24 hr 03/09/25 12:00 03/09/25 12:00 03/09/25 12:00 Temperature 97.5 F L Pulse Rate 60 59 L 59 L Respiratory Rate 16 16 Blood Pressure 195/67 H Pulse Oximetry 97 97 Oxygen Delivery Room Air 03/09/25 14:00 03/09/25 16:00 03/09/25 16:00 Temperature 97.7 F Pulse Rate 61 58 L 62 Respiratory Rate 16 16 Blood Pressure 174/57 H Pulse Oximetry 97 97 Oxygen Delivery Room Air 03/09/25 16:00 03/09/25 17:26 03/09/25 18:00 Temperature Pulse Rate 62 60 70 Respiratory Rate Blood Pressure Pulse Oximetry Oxygen Delivery 03/09/25 20:00 03/09/25 20:00 03/09/25 20:00 Temperature 97.6 F Pulse Rate 97 59 L Respiratory Rate 17 Blood Pressure 168/63 H Pulse Oximetry 97 Oxygen Delivery Room Air 03/09/25 22:00 03/09/25 23:55 03/10/25 00:00 Temperature 98.4 F Pulse Rate 61 64 Respiratory Rate 16 Blood Pressure 172/64 H Pulse Oximetry 95 Oxygen Delivery Room Air 03/10/25 00:00 03/10/25 01:26 03/10/25 02:00 Temperature Pulse Rate 63 65 Respiratory Rate Blood Pressure 133/44 L Pulse Oximetry Oxygen Delivery 03/10/25 03:36 03/10/25 04:00 03/10/25 04:00 Temperature 97.7 F Pulse Rate 69 64 Respiratory Rate 17 Blood Pressure 120/55 L Pulse Oximetry 91 Oxygen Delivery Room Air 03/10/25 06:00 03/10/25 07:43 03/10/25 07:56 Temperature 98.2 F Pulse Rate 65 67 65 Respiratory Rate 18 Blood Pressure 139/59 L Pulse Oximetry 92 Oxygen Delivery 03/10/25 08:00 03/10/25 08:00 Temperature Pulse Rate 65 65 Respiratory Rate 18 Blood Pressure Pulse Oximetry 92 Oxygen Delivery Room Air Intake/Output Intake/Output: Intake & Output 03/07/25 03/08/25 03/09/25 03/10/25 23:59 23:59 23:59 23:59 Intake Total 1140 240 Output Total 900 1000 Balance 240 -760 Meds/Results Medications: Active Medications Generic Name Dose Route Start Last Admin Trade Name Freq PRN Reason Stop Dose Admin Aspirin 81 mg 03/09/25 09:00 03/10/25 07:56 Aspirin 81 Mg Chewable Tablet PO 81 mg DAILY MINNA Administration Atorvastatin Calcium 40 mg 03/09/25 18:00 03/09/25 17:26 Atorvastatin 40 Mg Tablet PO 40 mg QPM MINNA Administration Calcitriol 0.25 mcg 03/10/25 09:00 03/10/25 07:58 Calcitriol 0.25 Mcg Capsule PO 0.25 mcg [id number] MINNA Administration Carvedilol 25 mg 03/09/25 09:00 03/10/25 07:56 Carvedilol 25 Mg Tablet PO 25 mg BID MINNA Administration Ergocalciferol 1,250 mcg 03/16/25 09:00 Ergocalciferol (Vitamin D2) 1,250 Mcg (50,000 Units) Capsule PO WEEKLY MINNA Famotidine 20 mg 03/09/25 17:00 03/10/25 07:57 Famotidine 20 Mg Tablet PO 20 mg BID MINNA Administration Furosemide 40 mg 03/09/25 09:00 03/10/25 07:56 Furosemide Inj 40 Mg/4 Ml Vial IV PUSH 40 mg Q12HR MINNA Administration Gabapentin 100 mg 03/09/25 09:00 03/10/25 07:56 Gabapentin 100 Mg Capsule PO 100 mg BID MINNA Administration Hydralazine HCl 10 mg 03/10/25 00:09 03/10/25 00:22 Hydralazine Hcl 20 Mg/Ml Vial IV PUSH 10 mg Q6HR PRN Administration SBP >160 Hydralazine HCl 100 mg 03/10/25 13:00 Hydralazine Hcl 50 Mg Tablet PO TID MINNA Hydroxyzine HCl 25 mg 03/09/25 12:24 Hydroxyzine Hcl 25 Mg Tablet PO Q6H PRN itching Isosorbide Mononitrate 60 mg 03/09/25 09:00 03/10/25 07:56 Isosorbide Mononitrate 60 Mg Tab.Er.24h PO 60 mg DAILY MINNA Administration Miscellaneous Information 1 each 03/09/25 00:01 Vit D Weekly- What Day Due? XX 04/08/25 00:00 CLARIFY MINNA Ondansetron HCl 4 mg 03/09/25 12:24 Ondansetron Hcl Odt 4 Mg Tablet PO Q6H PRN nausea and vomiting Pantoprazole Sodium 40 mg 03/09/25 09:00 03/10/25 07:56 Pantoprazole 40 Mg Tablet PO 40 mg DAILY MINNA Administration Radiology Results: ITS Impressions Chest X-Ray 03/08/25 21:18 IMPRESSION: Moderate pulmonary vascular congestion with a small right-sided pleural effusion. Venous Doppler Study 03/09/25 14:18 Impression: No evidence of deep venous thrombosis Pulmonary Perfusion Imaging 03/09/25 15:33 IMPRESSION: 1. No perfusion defects. Very low probability for pulmonary embolism. 2. Cardiomegaly. Labs Labs: Laboratory Results - last 24 hr 03/09/25 03/10/25 11:13 03:57 WBC 8.9 RBC 3.52 L Hgb 9.3 L Hct 30.4 L MCV 86.4 MCH 26.4 MCHC 30.6 L RDW 15.9 H Plt Count 255 MPV 11.1 H D-Dimer 0.56 H Sodium 132 L Potassium 3.7 Chloride 106 Carbon Dioxide 24 Anion Gap 2 L BUN 43 H Creatinine 3.37 H Estim Creat Clear Calc 15 Estimated GFR 14 L Glucose 88 Calcium 8.4
[2025-03-10] MEDS: hydrALAZINE HCL 50 MG TABLET 100 MG PO ×2 (12:21→17:14)
[2025-03-10] MEDS: ATORVASTATIN 40 MG TABLET PO (17:14)
[2025-03-10] MEDS: hydrOXYzine HCL 25 MG TABLET PO (23:42)
[2025-03-11] VITALS (9 sets, daily range): BP systolic 116–150; BP diastolic 40–59; PULSE 61–67; RESP 16–18; TEMP 36.1–36.7; O2SAT 95–97
[2025-03-11 05:45] LABS: Hematocrit 29.1 % (37.0-47.0); Hemoglobin 8.9 g/dL (12.0-15.0); Mean Corpuscular HGB Conc 30.6 g/dl (32-36); Mean Corpuscular Hemoglobin 26.6 pg (26-34); Mean Corpuscular Volume 87.1 fl (80-100); Mean Platelet Volume 10.9 fl (7.4-10.4); Platelet Count Result 258 k/mm3 (150-375); Red Blood Count 3.34 M/mm3 (4.2-5.4); Red Cell Distribution Width 15.9 % (11.5-14.5); White Blood Count 7.2 K/mm3 (4.5-10.0)
[2025-03-11 05:59] LABS: Anion Gap 7 mmol/L (4-12); Blood Urea Nitrogen 47 mg/dL (7-17); Calcium 8.4 mg/dL (8.4-10.2); Carbon Dioxide 23 mmol/L (22-30); Chloride 104 mmol/L (98-107); Estimated CRCL calculation 15 ml/min; Estimated Glomerular Filt Rate 13; Glucose 127 mg/dL (65-110); Potassium 3.9 mmol/L (3.4-5.0); Sodium 134 mmol/L (137-145)
--- NOTE | 2025-03-11 08:53 | PC.NURSE ---
Patient's telemetry box showed rapid heart rate. Dr. Ch is present and bedside with RN. Patient is asymptomatic and vitals are stable. RN was told to order a STAT EKG on patient.
[2025-03-11] MEDS: PANTOPRAZOLE 40 MG TABLET PO (09:09)
[2025-03-11] MEDS: FUROSEMIDE INJ 40 MG/4 ML VIAL IV PUSH (09:09)
[2025-03-11] MEDS: ISOSORBIDE MONONITRATE 60 MG TAB.ER.24H PO (09:09)
[2025-03-11] MEDS: carvediloL 25 MG TABLET PO (09:09)
[2025-03-11] MEDS: FAMOTIDINE 20 MG TABLET PO (09:09)
[2025-03-11] MEDS: hydrALAZINE HCL 50 MG TABLET 100 MG PO ×2 (09:09→12:07)
[2025-03-11] MEDS: GABAPENTIN 100 MG CAPSULE PO (09:09)
[2025-03-11] MEDS: ASPIRIN 81 MG CHEWABLE TABLET PO (09:09)
--- NOTE | 2025-03-11 12:56 | ECG_ITS ---
Test Date: 2025-03-11 13:10:16 Measurements Intervals [place] Rate: 69 P: 30 [place]: 149 QRS: 37 QRSD: 89 T: 0 QT: 391 QTc: 419 Interpretive Statements SINUS RHYTHM BORDERLINE R WAVE PROGRESSION, ANTERIOR LEADS CONSIDER INFERIOR INFARCT, AGE INDETERMINATE BORDERLINE ST-T WAVE ABNORMALITY- ANTEROLAT/HIGH LAT LEADS ABNORMAL ECG Compared to ECG 03/08/2025 20:31:43 No significant changes Electronically Signed On 03-11-2025 13:40:40 CDT by Johnny Robles D.O.
--- NOTE | 2025-03-11 13:51 | PM.DS ---
DS: Admitting Diagnosis Discharge Date 03/11/25 Admitting Diagnosis SOB,Diastolic CHF exacerbation DS: Discharge Diagnosis Discharge Diagnosis (1) Elevated troponin: Code(s): R79.89 - Other specified abnormal findings of blood chemistry Status: Acute (2) Acute dyspnea: Code(s): R06.00 - Dyspnea, unspecified Status: Acute (3) Congestive heart failure: Code(s): I50.9 - Heart failure, unspecified Status: Acute (4) CKD (chronic kidney disease): Code(s): N18.9 - Chronic kidney disease, unspecified Status: Acute (5) Leg swelling: Code(s): M79.89 - Other specified soft tissue disorders Status: Acute (6) SOB (shortness of breath): Code(s): R06.02 - Shortness of breath Status: Acute (7) Hyponatremia: Code(s): E87.1 - Hypo-osmolality and hyponatremia Status: Acute (8) Elevated d-dimer: Code(s): R79.89 - Other specified abnormal findings of blood chemistry Status: Acute Plan SOb acute on chronic Diastolic CHF elevated BNP CXR pulmonray edema ECHO G1D LAsix Daily weight , Intake and output Continue to monitor Leg swelling secondary to CHF lower ext Doppler neg for DVt Continue to monitor Elevated D Dimer could be normal in setting of kidney failure lower ext dopller and V q scan neg CKD renally adjust meds GERD PPI DS: Summary Hospital Course Hospital Course: per HPI: Patient with history of CHF HTN, HLD, GERD, CKD presented to hospital because of shortness of breath. Patient notes she suddenly started to have shortness of breath about 2 days ago and has been getting worse. She has been having dry cough. Has been having chills but denies any fever. Denies any orthopnea or PND Patient also complaining of bilateral leg swelling for a long time but has been worsening in past 3 days. In the ER lab test WBC 9, hemoglobin 9.6, creatinine 3.55, troponin 0.036 and proBNP 19126. Chest x-ray concerning for pulmonary edema. Treatment started with Lasix. Patient was admitted for further management at time of my exam she is feeling better. her breathing is getting better. denies chest pain, abd pain, N/V. will get Echo. continue Lasix. elevated D Dimer . VQ scan neg 03/10/25 Patient was seen and examined at bedside. she is feeling better. denies any chest pian, SOb, Abd pain,N/V. Echo showed G1D. Lower ext Doppler and VQ scan Neg. Will continue lasix. 03/11/25 Patient was seen and examined at bedside. she is feeling better, denies chest pain, abd pain ,N/V. breathing improved. Status at Discharge Overall status at discharge: patient is progressing back to baseline Time Spent with Patient Time attestation: Total time spent providing and/or coordinating discharge services: Time spent: Greater than 30 minutes Exam Narrative: APPEARANCE: Well appearing, no pain, no distress, well-nourished. HEAD: normocephalic, atraumatic. EYES: PERRLA/EOMI, conjunctivae clear. NOSE: Normal no drainage EARS:TMS clear with good light reflex. THROAT: Pharynx clear, no exudate. NECK: Supple. No adenopathy, no masses. RESPIRATORY: Airway patent, respirations nonlabored. Clear to auscultation bilaterally, no rales, rhonchi, wheezing. CARDIOVASCULAR: Regular rate and rhythm without murmurs rubs or gallops. ABDOMINAL: Soft, nontender, nondistended, normal bowel sounds MUSCULOSKELETAL: +2 lower extremity edema NEURO: Alert. Cranial nerves II through XII intact. Good gait. Good coordination SKIN: Warm, dry. Normal Color DS: Data Data Completed and Pending Labs on day of discharge: Labs from last 24 hours 03/11/25 04:46 WBC 7.2 RBC 3.34 L Hgb 8.9 L Hct 29.1 L MCV 87.1 MCH 26.6 MCHC 30.6 L RDW 15.9 H Plt Count 258 MPV 10.9 H Sodium 134 L Potassium 3.9 Chloride 104 Carbon Dioxide 23 Anion Gap 7 BUN 47 H Creatinine 3.48 H Estim Creat Clear Calc 15 Estimated GFR 13 L Glucose 127 H Calcium 8.4 Discharge Plan Discharge Attending physician on discharge: Janet Ch Discharging Clinician: Janet Ch Anticipated Discharge Date/Time: 03/11/25 13:54 Patient Disposition: Home Activity: as tolerated Diet: heart healthy and other - see discharge instructions Discharge Instructions: please check your blood pressure and heart rate regularly and report to PCP. follow with cardiology clinic and nephrology clinic as outpatient follow fluid restriction to 1500/cc per day. check your weight daily and report to PCp if you are gaining more than 3 pounds. follow with repeat blood test in 2-3 days and report to PCP Patient Instructions: Antibiotic Form, Heart Failure (GEN), Chronic Kidney Disease (GEN) Patient Language: Icelandic Stand Alone Forms: General Discharge Information Follow-up/Referrals: Mohsen Erickson MD [Physician] - Call for Appointment Hu Cazares MD [Physician] - Call for Appointment Discharge Medications: Continued calcitriol 0.25 mcg capsule 0.25 mcg PO .Q MWF hydralazine 50 mg tablet 75 mg PO TID famotidine 20 mg tablet 20 mg PO BID losartan 100 mg tablet 25 mg PO DAILY ondansetron 4 mg tablet,disintegrating 4 mg PO Q6H PRN (Reason: nausea and vomiting) carvedilol 25 mg tablet 25 mg PO BID gabapentin 100 mg capsule 100 mg PO BID isosorbide mononitrate 60 mg tablet extended release 24 hr 60 mg PO DAILY furosemide 40 mg tablet 40 mg PO DAILY ergocalciferol (vitamin D2) 1,250 mcg (50,000 unit) capsule 1,250 mcg PO WEEKLY aspirin [Aspirin Childrens] 81 mg tablet,chewable 81 mg PO DAILY atorvastatin 40 mg tablet 40 mg PO QPM (DME) OneTouch Verio test strips Strip MISCELLANEOUS hydroxyzine HCl 25 mg tablet 25 mg PO Q6H PRN (Reason: itching) pantoprazole 40 mg tablet,delayed release (DR/EC) 40 mg PO DAILY (DME) lancets [OneTouch Delica Plus Lancet] 33 gauge misc MISCELLANEOUS Other Ambulatory Orders: Basic Metabolic Panel (Routine) Timeframe: 2 Days Location: Determined by Patient Ordered By: Janet Ch Date of admission: 03/08/25 22:10 Primary Care Provider: UNKNOWN,DOCTOR Admitting Provider: Adrianna Gallardo Attending physician on admission: Janet Ch Condition: Serious
== END 2025-03-11 15:07 | disposition home or self-care (01) ==
LOC: ANHED 21:31 → ANHIMU 22:34 → ANH2MED 03-10 23:27
PROVIDERS: Admitting Provider Internal Medicine; Emergency Provider Emergency Medicine; Visit Provider Internal Medicine
DX: I13.0 Hypertensive heart and chronic kidney disease with heart failure and stage 1 through stage 4 chronic kidney disease, or unspecified chronic kidney disease (principal); I50.33 Acute on chronic diastolic (congestive) heart failure; N18.9 Chronic kidney disease, unspecified; E87.1 Hypo-osmolality and hyponatremia; M79.89 Other specified soft tissue disorders; R79.89 Other specified abnormal findings of blood chemistry; E78.5 Hyperlipidemia, unspecified; K21.9 Gastro-esophageal reflux disease without esophagitis; Z20.822 Contact with and (suspected) exposure to COVID-19; Z79.82 Long term (current) use of aspirin; Z79.899 Other long term (current) drug therapy
CPT/HCPCS: 36415; 71045; 78580; 80048; 80053; 83880; 84484; 85025; 85027; 85380; 85610; 85730; 87637; 93005; 93970; 96374; 96376; 99285; A9270; A9540; C8929; G0378; G0379; J0360; J1938; Q9957

== ENCOUNTER 2025-03-15 08:41 | Inpatient (IN) | payer SELFPAY ==
[2025-03-15] VITALS (14 sets, daily range): BP systolic 141–195; BP diastolic 5–105; PULSE 61–75; RESP 13–20; TEMP 36.4–37.1; O2SAT 87–100; BMI 34.4
--- NOTE | ~2025-03-15 | XR_ITS ---
EXAMINATION: XR abdomen/kub 1V DATE: 03/18/2025 13:13 INDICATION: Abdominal pain TECHNIQUE: A supine view of the abdomen on 2 radiographs was obtained. COMPARISON: 03/15/2025 FINDINGS: Moderate to large amount of stool and small amount of gas scattered throughout the colon. No dilated gas-filled loops of small bowel to suggest obstruction. Multiple phleboliths in the pelvis. There are couple ovoid calcifications in the right lower quadrant and right grain of rice like appearance whic h on prior CT are within oriented along the fibers of the abdominal wall and abductor musculature as could be seen with cysticercosis. IMPRESSION: 1. Moderate to large amount of colonic stool which could be seen with constipation. No dilated bowel to suggest obstruction. 2. 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 Reviewed, dictated and finalized at location B. IMPRESSION: 1. Moderate to large amount of colonic stool which could be seen with constipat ion. No dilated bowel to suggest obstruction. 2. A couple intramuscular dystrophic calcifications with appearance suggestive of chronic muscular cysticercosis.
--- NOTE | ~2025-03-15 | XR_ITS ---
XR chest 2V Ordering provider: Camryn Salmon APRN History: 59 years Female with . shortness of breath, chest pain . Comparison: March 08, 2025 FINDINGS: MEDIASTINUM: The cardiac silhouette is moderately enlarged. Congestive azucena. LUNGS: No effusions or pneumothorax. Interstitial thickening bilaterally in the lower lobes and left midzone suggestive of pneumonitis versus pulmonary edema. OTHER: No free air under the diaphragm. IMPRESSION: Cardiomegaly with cardiac decompensation and pulmonary edema. Bibasilar atelectasis versus pneumonia more in the left side. Reviewed, dictated and finalized at location A. IMPRESSION: Cardiomegaly with cardiac decompensation and pulmonary edema. Bibasilar atelect asis versus pneumonia more in the left side.
--- NOTE | ~2025-03-15 | XR_ITS ---
EXAMINATION: XR chest 1V portable DATE: 03/18/2025 10:42 INDICATION: Chest heart failure, shortness of breath, cough and mid chest burning sensation TECHNIQUE: frontal view of the chest was obtained. COMPARISON: Chest radiograph dated 03/17/25 FINDINGS: Blunting at the bilateral cardiophrenic angles consistent with very small bilateral pleural effusions . Minimal streaky bibasilar atelectasis. No pulmonary edema or pneumothorax. Cardiomegaly. IMPRESSION: 1. Very small bilateral pleural effusions with mild bibasilar atelectasis. 2. Cardiomegaly. Reviewed, dictated and finalized at location B.
--- NOTE | ~2025-03-15 | CT_ITS ---
EXAMINATION: CT chest abdomen pelvis wo con DATE: 03/15/2025 17:21 INDICATION: abd pain . TECHNIQUE: Computed tomography (CT) of the chest, abdomen, and pelvis was performed without intraveno us contrast. Automated exposure control and iterative reconstruction technique were employed. The dos e-length product was 1019.09 mGy-cm. COMPARISON: None FINDINGS: CHEST: Thoracic aorta: No significant dilation. No dissection. Lung parenchyma and airways: Septal thickening. Vascular congestion. Peribronchovascular thickening a nd groundglass opacities. Scattered areas of linear atelectasis/scar. Patent airways. Thoracic inlet, axillae and chest wall: No thyroid or soft tissue mass. No axillary lymphadenopathy. Mild chest wall edema. Mediastinum: No mass or lymphadenopathy. Heart and pericardium: Marked cardiomegaly. Small pericardial effusion. Coronary artery calcifications: Mild. Pleura: Small bilateral pleural fluid collections. Thoracic bones: No acute osseous finding in the chest. ABDOMEN/PELVIS: Liver: Enlarged Biliary/Gallbladder: Gallbladder is normal. No bile duct dilation. Pancreas: No mass or duct dilation. Spleen: Normal. Adrenals:No mass. Kidneys: No suspicious mass, obstructing stone, or hydronephrosis. GI tract: Uncomplicated duodenal diverticulum. No small or large bowel dilation. Appendix not confide ntly visualized. Mesentery/Peritoneum: No ascites, mass, or free air. Retroperitoneum: No mass Pelvis: Normal urinary bladder. Enlarged uterus. Normal bilateral ovaries. Trace fluid in the deep pe lvis. Soft Tissues: Moderate trunk edema. Moderate sized fat-containing umbilical hernia. Abdominopelvic bones: No acute osseous finding in the abdomen/pelvis. IMPRESSION: Pulmonary opacities most likely representing pulmonary edema. Infection not excluded. Small bilateral pleural effusions. Cardiomegaly. Small pericardial effusion. Hepatomegaly. Enlarged uterus, probably secondary to fibroids. Trace free pelvic fluid. Moderate body wall edema. Reviewed, dictated and finalized at location K. IMPRESSION: Pulmonary opacities most likely representing pulmonary edema. Infection not exc luded. Small bilateral pleural effusions. Cardiomegaly. Small pericardial effusion. Hepatomegaly. Enlarged uterus, probably secondary to fibroids. Trace free pelvic fluid. Moderate body wall edema.
--- NOTE | ~2025-03-15 | CT_ITS ---
CLINICAL INDICATION: Increasing abdominal pain COMPARISON: 03/15/2025. TECHNIQUE: Multiple contiguous axial images of the abdomen and pelvis were performed without the admi nistration of intravenous contrast The dose-length product (DLP) was 496.96 mGy-cm. Automated exposure control and iterative reconstruction technique were employed. FINDINGS/OBSERVATIONS: Visualized lower thorax: Trace right-sided pleural effusion with adjacent compressive atelectasis. Bibasilar atelectasis is also noted. No consolidation is appreciated. The appearance of the bilateral lung bases is improved from 03/15/2025. The heart is enlarged, unchanged, with a small pericardial effusion, also unchanged. Redemonstration of a small hiatal hernia. Liver: The liver demonstrates heterogeneous attenuation and is enlarged measuring 20 cm in longitudinal dime nsion. Gallbladder and biliary system: The gallbladder is only minimally distended, and otherwise unremarkable. Pancreas: Limited evaluation of the pancreas secondary to the lack of intravenous contrast. Spleen: The spleen demonstrates homogeneous attenuation and is not enlarged. Kidneys: The bilateral kidneys are unremarkable, without hydronephrosis or renal calculi. Adrenal glands: Unremarkable. Gastrointestinal tract: Colonic diverticulosis without significant surrounding inflammatory change. Fecal stasis within the distal colon. Appendix: The appendix is of normal caliber (axial series, images 117 through 121). Vasculature: Densely calcified atherosclerotic disease at the origins of the celiac axis, superior mesenteric martin ry and inferior mesenteric artery without additional findings to suggest mesenteric ischemia. Lymph nodes: No pathologically enlarged or morphologically suspicious lymph nodes within the retroperitoneum or at the root of the mesentery. Pelvic structures: The bladder is decompressed, limiting its evaluation. The uterus is retroverted and retroflexed. No significant free fluid is identified within the pelvis. The ovaries are not visualized. Body wall and musculoskeletal: Significant anasarca, demonstrating progression from prior examination. Increase in size of the fat and likely omental containing umbilical hernia, which extends caudally al nayan the anterior abdominal wall. Age advanced degenerative disease within the lower thoracic and lumbosacral spines, specifically at t he level of L5/S1. There are bridging endplate osteophytes at multiple levels in the lower thoracic spine, consistent wi th diffuse idiopathic skeletal hyperostosis (DISH). IMPRESSION: Increase in size of the fat and likely omental containing umbilical hernia which extends caudally heather ng the anterior abdominal wall measuring 3.3 cm in cranial caudal descent on previous examination, no w measuring 5.3 cm. Clinical correlation is needed regarding point tenderness along the midline of the abdomen, at the le teresa of the umbilicus. Improved appearance of the bilateral lung bases, as detailed above. Worsening anasarca. Densely calcified atherosclerotic disease at the origins of the celiac axis, superior mesenteric martin ry and inferior mesenteric artery without additional findings to suggest mesenteric ischemia. Reviewed, dictated and finalized at location A. IMPRESSION: Increase in size of the fat and likely omental containing umbilical hernia whic h extends caudally along the anterior abdominal wall measuring 3.3 cm in crania l caudal descent on previous examination, now measuring 5.3 cm. Clinical correlation is needed regarding point tenderness along the midline of the abdomen, at the level of the umbilicus. Improved appearance of the bilateral lung bases, as detailed above. Worsening anasarca. Densely calcified atherosclerotic disease at the origins of the celiac axis, avelar perior mesenteric artery and inferior mesenteric artery without additional find ings to suggest mesenteric ischemia.
--- NOTE | ~2025-03-15 | NM_ITS ---
EXAMINATION: NM lung vent and perfusion DATE: 03/15/2025 13:40 INDICATION: Shortness of breath. Elevated d-dimer. TECHNIQUE: 10.3 mCi xenon-133 by inhalation and 5.1 mCi Tc-99m MAA by intravenous route. Scintigraph ic images of the chest were obtained. COMPARISON: Chest radiograph dated 03/15/2025 FINDINGS: There is homogeneous radiotracer activity throughout the lungs on the single breath ventilation seque nce. There are couple small perfusion defects at the lateral aspect of the superior segment of the ri ght lower lobe and the posterior segment of the right upper lobe. There is otherwise relatively homog eneous perfusion throughout the lungs. IMPRESSION: 1. Low probability for pulmonary embolism. Reviewed, dictated and finalized at location B.
--- NOTE | ~2025-03-15 | US_ITS ---
EXAM: RENAL ULTRASOUND HISTORY: CKD COMPARISON: None FINDINGS: RIGHT KIDNEY: 11.8 x 5.6 x 4.2 cm. The parenchyma of the right kidney is unremarkable in echogenicity and caliber. No hydronephrosis or renal calculi. LEFT KIDNEY: 11.4 x 5.4 x 5.1 cm No hydronephrosis or renal calculi. The parenchyma of the left kidney is unremarkable in echogenicity and caliber. BLADDER: Despite prolonged interrogation, neither ureteral jet were visualized. The bladder was minim ally distended, and otherwise unremarkable. IMPRESSION: No hydronephrosis or renal calculi. No sonographic evidence to suggest the presence of medical renal disease, as detailed above. Reviewed, dictated and finalized at location A. IMPRESSION: No hydronephrosis or renal calculi. No sonographic evidence to suggest the presence of medical renal disease, as de tailed above.
--- NOTE | ~2025-03-15 | XR_ITS ---
Portable chest x-ray Comparison: 03/15/2025 Clinical History: Dyspnea Findings: There is mild interstitial prominence bilaterally. Possible minimal right pleural effusion . Cardiomediastinal silhouette is stable. Bones and soft tissues are unremarkable. Impression: Possible minimal interstitial edema versus possibly chronic interstitial disease. Probable minimal right pleural effusion. Stable marked cardiomegaly. Pericardial effusion not excluded. Reviewed, dictated and finalized at location . Impression: Possible minimal interstitial edema versus possibly chronic interstitial diseas e. Probable minimal right pleural effusion. Stable marked cardiomegaly. Pericardial effusion not excluded.
--- NOTE | 2025-03-15 08:42 | ECG_ITS ---
Test Date: 2025-03-15 08:38:30 Measurements Intervals [place] Rate: 64 P: 33 [place]: 131 QRS: 31 QRSD: 90 T: -31 QT: 400 QTc: 414 Interpretive Statements SINUS RHYTHM CONSIDER INFERIOR INFARCT, AGE INDETERMINATE BORDERLINE ST-T WAVE ABNORMALITY- ANTEROLAT/HIGH LAT LEADS BASELINE ARTIFACT- I, II, III, AVR, AVL, V2 ABNORMAL ECG Compared to ECG 03/11/2025 13:10:16 No significant changes Electronically Signed On 03-15-2025 09:55:54 CDT by Johnny Robles D.O.
[2025-03-15 08:57] LABS: Hematocrit 30.8 % (37.0-47.0); Hemoglobin 9.2 g/dL (12.0-15.0); Immature Granulocyte Percent A 0.4 % (0-0.5); Immature Platelet Fraction Pct 2.4 % (0.9-11.2); Lymphocytes Absolute Auto 1.25 K/mm3 (0.9-3.2); Mean Corpuscular HGB Conc 29.9 g/dl (32-36); Mean Corpuscular Hemoglobin 26.4 pg (26-34); Mean Corpuscular Volume 88.3 fl (80-100); Nucleated Red Blood Cells Absolute Auto 0.000 K/mm3 (0.0-0.012); Nucleated Red Blood Cells Perc 0.0 % (0.0-0.2); Platelet Count Result 229 k/mm3 (150-375); Red Blood Count 3.49 M/mm3 (4.2-5.4); White Blood Count 7.9 K/mm3 (4.5-10.0)
[2025-03-15 09:06] LABS: Alanine Aminotransferase 11 U/L (6-35); Albumin Level 2.9 g/dL (3.5-5.1); Alkaline Phosphatase 83 U/L (38-126); Anion Gap 7 mmol/L (4-12); Aspartate Amino Transferase 23 U/L (14-36); Bilirubin,Total 0.4 mg/dL (0.2-1.3); Blood Urea Nitrogen 46 mg/dL (7-17); Calcium 8.7 mg/dL (8.4-10.2); Carbon Dioxide 22 mmol/L (22-30); Chloride 106 mmol/L (98-107); Estimated Glomerular Filt Rate 13; Glucose 112 mg/dL (65-110); Lipase 46 U/L (23-300); Potassium 3.7 mmol/L (3.4-5.0); Sodium 135 mmol/L (137-145); Total Protein 5.7 g/dL (6.3-8.2)
[2025-03-15 09:25] LABS: Hypochromasia 1+; Schistocytes None Seen
--- NOTE | 2025-03-15 09:26 | ED.SOB ---
HPI - SOB/Dyspnea General Chief Complaint: Abdominal Pain Stated Complaint: abd pain Time Seen by Provider: 03/15/25 09:01 History of Present Illness HPI Narrative: Patient is a 59-year-old , non-Citizen Of [place] speaking patient who presents to the ER with abdominal pain, shortness of breath, chest pain, and vomiting. She reports her symptoms have been going on for approximately 3 days. Patient reports she has a history of kidney and heart problems. She endorses intermittent back pain and vomiting when she's sleeping. Patient endorses orthopnea with exertion. She reports she was recently in the hospital for similar symptoms. Patient denies any current back pain, urinary symptoms, or recent fevers. Related Data Home Medications ?Medication ?Instructions ?Recorded ?Confirmed ?Last Taken ?Type aspirin 81 mg chewable tablet 81 mg PO DAILY 03/08/25 03/15/25 03/14/25 History (Aspirin Childrens) atorvastatin 40 mg tablet 40 mg PO QPM 03/08/25 03/15/25 03/14/25 History blood sugar diagnostic (OneTouch 03/08/25 03/15/25 Unknown History Verio test strips) calcitriol 0.25 mcg capsule 0.25 mcg PO .Q MWF 03/08/25 03/15/25 03/14/25 History carvedilol 25 mg tablet 25 mg PO BID 03/08/25 03/15/25 03/14/25 History ergocalciferol (vitamin D2) 1,250 1,250 mcg PO WEEKLY 03/08/25 03/15/25 Unknown History mcg (50,000 unit) capsule famotidine 20 mg tablet 20 mg PO BID 03/08/25 03/15/25 03/14/25 History furosemide 40 mg tablet 40 mg PO DAILY 03/08/25 03/15/25 03/14/25 History gabapentin 100 mg capsule 100 mg PO BID 03/08/25 03/15/25 03/14/25 History hydralazine 50 mg tablet 75 mg PO TID 03/08/25 03/15/25 03/14/25 History hydroxyzine HCl 25 mg tablet 25 mg PO Q6H PRN itching 03/08/25 03/15/25 Unknown History isosorbide mononitrate 60 mg 60 mg PO DAILY 03/08/25 03/15/25 03/14/25 History tablet,extended release 24 hr lancets 33 gauge ([place] Cornelius 03/08/25 03/15/25 Unknown History Plus Lancet) losartan 100 mg tablet 25 mg PO DAILY 03/08/25 03/15/25 03/14/25 History ondansetron 4 mg disintegrating 4 mg PO Q6H PRN nausea and vomiting 03/08/25 03/15/25 03/14/25 History tablet pantoprazole 40 mg tablet,delayed 40 mg PO DAILY 03/08/25 03/15/25 03/14/25 History release Allergies Allergy/AdvReac Type Severity Reaction Status Date / Time No Known Allergies Allergy Verified 03/15/25 09:13 Review of Systems Review of Systems: All systems reviewed & are unremarkable except as noted in HPI and below PMFSH Family History Family History Other No significant past medical history Social History Social History Smoking status: Never smoker Alcohol intake: never Substance use: never Do You Feel Safe in your Home?: Yes Lack of Transportation: No Lack of Food: Never True Current Housing: Decline to Answer Concerned About Future Housing: No Difficulty Paying Gas/Electric Bills: No Difficulty Paying for Meds: No Currently Unemployed: No Education: High School Diploma/GED Difficulty w/ Childcare or Family Care: No Spiritual care concerns: No Exam Narrative: GENERAL:Ill appearing, well-nourished, non-toxic, in no acute distress. HEAD: Normocephalic, atraumatic. NECK: Supple. No adenopathy, no masses. RESPIRATORY: Airway patent, respirations nonlabored. Clear to auscultation bilaterally, no rales, rhonchi, wheezing. CARDIOVASCULAR: Regular rate and rhythm without murmurs, rubs, or gallops. Peripheral pulses diminished, + lower extremity edema ABDOMINAL: Soft, nontender, nondistended, no hepatosplenomegaly. Normoactive BS. MUSCULOSKELETAL: Moves all extremities. Strength/ROM intact without gross deformities. SKIN: Warm, dry, normal color. No rashes. NEURO: A&O X3. Speech clear. Cranial nerves II-XII intact. No ataxic movements. PSYCHIATRIC: Appropriate mood and affect. Normal interaction. Course Vital Signs Vital signs: Vital Signs Temperature 97.9 F 03/15/25 08:44 Pulse Rate 66 03/15/25 08:44 Respiratory Rate 16 03/15/25 08:44 Blood Pressure 184/68 H 03/15/25 08:44 Pulse Oximetry 96 03/15/25 08:44 Oxygen Delivery Room Air 03/15/25 08:44 Temperature 98.5 F 03/15/25 16:26 Pulse Rate 68 03/15/25 18:00 Respiratory Rate 18 03/15/25 16:26 Blood Pressure 178/5 H 03/15/25 16:26 Pulse Oximetry 94 03/15/25 16:26 Oxygen Delivery Room Air 03/15/25 08:44 MDM - SOB/Dyspnea MDM Narrative Medical decision making narrative: Patient is a 59-year-old , non-Citizen Of [place] speaking patient who presents to the ER with abdominal pain, shortness of breath, chest pain, and vomiting. She reports her symptoms have been going on for approximately 3 days. Patient reports she has a history of kidney and heart problems. She endorses intermittent back pain and vomiting when she's sleeping. Patient endorses orthopnea with exertion. She reports she was recently in the hospital for similar symptoms. Patient denies any current back pain, urinary symptoms, or recent fevers. Labs Ordered: CBC, CMP, coags, D-dimer, UA, troponin, proBNP, lipase, UA, UDS Imaging Ordered: Chest x-ray, V/Q scan Medications Ordered: 1 L normal saline IV bolus (slow administration), Lasix 40 mg IV x2, morphine 2 mg IV Results: Pt's chest x-ray indicates Cardiomegaly with cardiac decompensation and pulmonary edema. Bibasilar atelectasis versus pneumonia more in the left side. Her CBC indicates a red blood cell count of 3.49, hemoglobin of 9.2, hematocrit of 30.8%. Patient's D-dimer is 0.86. Her coags indicated a PT 15.1. Patient's chemistry indicates a sodium of 135, BUN of 46, creatinine of 3.49, GFR of 30, glucose of 112, total protein of 5.7, albumin of 2[place] [address]. Patient's UA indicates a protein of 4+, glucose of 1+, trace ketones, red blood cell count of 6-10, and white blood cell count of 6 to 10. Her UDS was negative for any illicit substance use. Diagnosis: CHF exacerbation, elevated creatinine, shortness of breath Consults: 1100- Spoke with microsoft crm developer, Dr. Cazares, who reports he will consult on pt while she is in the hospital. Patient Education/Shared MDM: Results of lab work and imaging shared with patient. It was suggested pt be admitted to the hospital for further evaluation and treatment. She was in agreement with plan. Pt's oxygen saturation has started to decrease down to 86% while on room air. She bring her saturations up to 93%, but pt will be placed on 2L NC to keep her oxygen saturations above 95%. 1045- Spoke with hospitalist, Dr. Gaytan, who is in agreement with plan for admission. She will be admitted to the IMU. Dr. Gaytan requests pt receive another dose of Lasix. Differential Diagnosis Differential diagnosis: Likely acute exacerbation of chronic obstructive airways disease, congestive heart failure, community acquired pneumonia and pulmonary embolism Lab Data Attestation: I reviewed the patient's lab results. 03/15/25 08:48 03/15/25 08:48 Labs: Lab Results 03/15/25 03/15/25 Range/Units 08:48 09:37 WBC 7.9 (4.5-10.0) K/mm3 RBC 3.49 L (4.2-5.4) M/mm3 Hgb 9.2 L (12.0-15.0) g/dL Hct 30.8 L (37.0-47.0) % MCV 88.3 (80-100) fl MCH 26.4 (26-34) pg MCHC 29.9 L (32-36) g/dl RDW 15.7 H (11.5-14.5) % Plt Count 229 (150-375) k/mm3 MPV 11.0 H (7.4-10.4) fl Immature Gran % (Auto) 0.4 (0-0.5) % Neut % (Auto) 69.1 (45.5-73.1) % Lymph % (Auto) 15.9 L (18.3-44.2) % [place] % (Auto) 8.9 H (2.6-8.5) % Eos % (Auto) 5.1 H (0-4.4) % Baso % (Auto) 0.6 (0.2-1.2) % Lymph # (Auto) 1.25 (0.9-3.2) K/mm3 [place] # (Auto) 0.7 H (0.1-0.6) K/mm3 Eos # (Auto) 0.4 H (0-0.3) K/mm3 Baso # (Auto) 0.1 (0.0-0.1) K/mm3 Abs Immat Gran (auto) 0.03 (0.00-0.031) K/mm3 Absolute Neuts (auto) 5.4 (1.3-6.7) K/mm3 Absolute Nucleated RBC 0.000 (0.0-0.012) K/mm3 Band Neutrophils % Not Reportable Nucleated RBC % 0.0 (0.0-0.2) % Platelet Estimate Adequate (Adequate) % Immature Plt Fraction 2.4 (0.9-11.2) % Hypochromasia 1+ Schistocytes None seen PT 15.1 H (11.1-14.7) Seconds INR 1.2 APTT 34.4 (22.3-36.8) Seconds D-Dimer 0.86 H (<0.48) ug/mL Sodium 135 L (137-145) mmol/L Potassium 3.7 (3.4-5.0) mmol/L Chloride 106 (98-107) mmol/L Carbon Dioxide 22 (22-30) mmol/L Anion Gap 7 (4-12) mmol/L BUN 46 H (7-17) mg/dL Creatinine 3.49 H (0.7-1.0) mg/dL Estim Creat Clear Calc Not Reportable Estimated GFR 13 L (59 - ) Glucose 112 H (65-110) mg/dL Calcium 8.7 (8.4-10.2) mg/dL Magnesium 2.0 (1.6-2.3) mg/dL Total Bilirubin 0.4 (0.2-1.3) mg/dL AST 23 (14-36) U/L ALT 11 (6-35) U/L Alkaline Phosphatase 83 (38-126) U/L Troponin I 0.015 (0.000-0.034) ng/mL NT-Pro-B Natriuret Pep 62454 H (19.9-100) pg/mL Total Protein 5.7 L (6.3-8.2) g/dL Albumin 2.9 L (3.5-5.1) g/dL Lipase 46 (23-300) U/L Urine Color Yellow (Yellow) Urine Appearance Cloudy H (Clear) Urine pH 6.0 (5.0-9.0) Ur Specific [place] 1.021 (1.001-1.035) Urine Protein 4+ H (Negative) mg/dL Urine Glucose (UA) 1+ H (Negative) mg/dL Urine Ketones Trace H (Negative) mg/dL Ur Blood (Man) Trace (Negative) Urine Nitrate Negative (Negative) Urine Bilirubin Negative (Negative) Urine Urobilinogen 0.2 (<2.0) mg/dL Add Ur Microanalysis Reviewed Leukocyte Esterase Rfl Negative (Negative) CRISTELA/UL Urine RBC 6-10 H (0-2) /hpf Urine WBC 6-10 H (0-3) /hpf Ur Squamous Epith Cells Few (Few) /hpf Urine Bacteria None seen /hpf Urine Casts 11-20 Urine Opiates Screen Negative (Negative) Urine Methadone Screen Negative (Negative) Ur Barbiturates Screen Negative (Negative) Ur Phencyclidine Scrn Negative (Negative) Ur Amphetamine Screen Negative (Negative) U Benzodiazepines Scrn Negative (Negative) Urine Cocaine Screen Negative (Negative) U Cannabinoids Screen Negative (Negative) Discharge Plan Discharge Clinical Impression: Congestive heart failure, Renal insufficiency Patient Disposition: Still a Patient Condition: Stable
[2025-03-15 09:38] LABS: Magnesium 2.0 mg/dL (1.6-2.3)
[2025-03-15] MEDS: MORPHINE SULFATE (*CRX) 2 MG/ML INJ IV PUSH (09:44)
[2025-03-15] MEDS: SODIUM CHLORIDE 0.9% IV 1,000 ML 500 ML IV CONT (09:46)
[2025-03-15 09:50] LABS: NT Pro B Type Natriuretic Pept 23200 pg/mL (19.9-100); Troponin I 0.015 ng/mL (0.000-0.034)
[2025-03-15 10:00] LABS: INR 1.2; Prothrombin Time 15.1 Seconds (11.1-14.7)
[2025-03-15 10:01] LABS: Partial Thromboplastin Time 34.4 Seconds (22.3-36.8)
[2025-03-15 10:04] LABS: Add Urine Microscopic? YES; Appearance Urine Cloudy (Clear); Glucose Urine UA 1+ mg/dL (Negative); Leukocyte Esterase Ur Negative LEU/UL (Negative); Need Manual Microscopic Reviewed; Nitrate Urine Negative (Negative); Specific Grav Ur 1.021 (1.001-1.035)
[2025-03-15 10:07] LABS: Cannabinoid Screen Urine Negative (Negative)
[2025-03-15] MEDS: FUROSEMIDE INJ 40 MG/4 ML VIAL IV PUSH ×3 (10:27→16:31)
--- NOTE | 2025-03-15 11:19 | PC.NURSE ---
Pt reports pain to abdomen has lessened significantly. Pt is having episodes of O2 dropping to high 80s while resting, so RN placed pt on 2L NC at this time. Pt and relative updated on POC. They deny additional needs at this time. Respirations remain even and unlabored. No distress noted.
--- NOTE | 2025-03-15 12:05 | PC.NURSE ---
Arrived to the floor via stretcher from the ER. Vital signs obtained and stable at this time. 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 Denies pain or discomfort at this time. Chinese speaking only. Will review recent history for admission paperwork as patient was recently discharged.
--- NOTE | 2025-03-15 16:38 | PM.IMHP ---
H&P: HPI History of Present Illness Date/Time: 03/15/25 16:38 Chief Complaint: SOB, abd pain and vomiting Narrative: 59 yo female with PMH of CHF, DM2, CKD, and Hypertension who presented to ER on account of SOB and abd pain. Patient noted she has been having abd pain the past 3 days upper abdominal pain, 10/10 intensity, non radiating, associated with vomiting. Also complained of SOB and leg swelling. Noted that she is compliant with her medications. ER eval notable BP 184/68, on supplemental oxygen, labs notable for hb 9.2, Cr 3.49 which is baseline, NT-proBNP [id number], UDS negative. CXR showed cardiomegaly with cardiac decompensation and pulm edema. V/Q scan showed low for probability embolism. Patient was started on Lasix prior to admission. Review of Systems Review of Systems: All other systems were reviewed and negative except as noted in the HPI above. [facility] Family History Family History Other No significant past medical history Social History Social History Smoking status: Never smoker Alcohol intake: never Substance use: never Do You Feel Safe in your Home?: Yes Lack of Transportation: No Lack of Food: Never True Current Housing: Decline to Answer Concerned About Future Housing: No Difficulty Paying Gas/Electric Bills: No Difficulty Paying for Meds: No Currently Unemployed: No Education: High School Diploma/GED Difficulty w/ Childcare or Family Care: No Spiritual care concerns: No Meds Home Medications and Allergies Home Medications ?Medication ?Instructions ?Recorded ?Confirmed ?Type aspirin 81 mg chewable tablet 81 mg PO DAILY 03/08/25 03/15/25 History (Aspirin Childrens) atorvastatin 40 mg tablet 40 mg PO QPM 03/08/25 03/15/25 History blood sugar diagnostic (OneTouch 03/08/25 03/15/25 History Verio test strips) calcitriol 0.25 mcg capsule 0.25 mcg PO .Q MWF 03/08/25 03/15/25 History carvedilol 25 mg tablet 25 mg PO BID 03/08/25 03/15/25 History ergocalciferol (vitamin D2) 1,250 1,250 mcg PO WEEKLY 03/08/25 03/15/25 History mcg (50,000 unit) capsule famotidine 20 mg tablet 20 mg PO BID 03/08/25 03/15/25 History furosemide 40 mg tablet 40 mg PO DAILY 03/08/25 03/15/25 History gabapentin 100 mg capsule 100 mg PO BID 03/08/25 03/15/25 History hydralazine 50 mg tablet 75 mg PO TID 03/08/25 03/15/25 History hydroxyzine HCl 25 mg tablet 25 mg PO Q6H PRN itching 03/08/25 03/15/25 History isosorbide mononitrate 60 mg 60 mg PO DAILY 03/08/25 03/15/25 History tablet,extended release 24 hr lancets 33 gauge (OneTouch Delica 03/08/25 03/15/25 History Plus Lancet) losartan 100 mg tablet 25 mg PO DAILY 03/08/25 03/15/25 History ondansetron 4 mg disintegrating 4 mg PO Q6H PRN nausea and vomiting 03/08/25 03/15/25 History tablet pantoprazole 40 mg tablet,delayed 40 mg PO DAILY 03/08/25 03/15/25 History release Allergies Allergy/AdvReac Type Severity Reaction Status Date / Time No Known Allergies Allergy Verified 03/15/25 09:13 Vital Signs Vital Signs - 24 hr 03/15/25 08:44 03/15/25 09:12 03/15/25 11:15 Temperature 97.9 F Pulse Rate 66 66 Respiratory Rate 16 19 Blood Pressure 184/68 H 165/64 H 141/105 H Pulse Oximetry 96 98 Oxygen Delivery Room Air 03/15/25 11:15 03/15/25 11:17 03/15/25 11:25 Temperature Pulse Rate 62 Respiratory Rate 13 15 Blood Pressure 195/84 H 186/83 H Pulse Oximetry 87 L 100 Oxygen Delivery 03/15/25 12:23 03/15/25 14:00 03/15/25 15:59 Temperature 97.5 F L Pulse Rate 65 67 62 Respiratory Rate 20 Blood Pressure 188/77 H Pulse Oximetry 94 Oxygen Delivery 03/15/25 16:26 Temperature 98.5 F Pulse Rate 61 Respiratory Rate 18 Blood Pressure 178/5 H Pulse Oximetry 94 Oxygen Delivery Exam Narrative: General: alert and comfortable Eyes: EOMI, PERRLA ENNT External ears normal, Neck is supple, no masses, Respiratory systems: Clear to auscultation Cardiovascular: S1, S2, normal rhythm, no murmur, rub, or gallop; no thrill or palpable murmurs on palpation. Gastrointestinal: soft, epigastric and LUQ tenderness , and non-distended abdomen with no masses; BS present Skin: no rash, lesions, ulcerations, subcutaneous nodules or induration Musculoskeletal: no abnormality and no tenderness, normal ROM Neurologic: Alert and oriented x3, non focal Mental Status Exam: normal affect H&P: Results Labs Labs: Short CBC 03/15/25 Range/Units 08:48 WBC 7.9 (4.5-10.0) K/mm3 Hgb 9.2 L (12.0-15.0) g/dL Hct 30.8 L (37.0-47.0) % Plt Count 229 (150-375) k/mm3 BMP 03/15/25 08:48 Sodium 135 L Potassium 3.7 Chloride 106 Carbon Dioxide 22 BUN 46 H Creatinine 3.49 H Glucose 112 H Calcium 8.7 Cardiac Enzymes 03/15/25 Range/Units 08:48 Troponin I 0.015 (0.000-0.034) ng/mL Liver Function 03/15/25 Range/Units 08:48 Total Bilirubin 0.4 (0.2-1.3) mg/dL AST 23 (14-36) U/L ALT 11 (6-35) U/L Alkaline Phosphatase 83 (38-126) U/L Albumin 2.9 L (3.5-5.1) g/dL Urine 03/15/25 Range/Units 09:37 Urine Color Yellow (Yellow) Urine Appearance Cloudy H (Clear) Urine pH 6.0 (5.0-9.0) Ur Specific [place] 1.021 (1.001-1.035) Urine Protein 4+ H (Negative) mg/dL Urine Glucose (UA) 1+ H (Negative) mg/dL Assessment and Plan Assessment and plan (1) Congestive heart failure: Code(s): I50.9 - Heart failure, unspecified Status: Acute (2) Abdominal pain: Code(s): R10.9 - Unspecified abdominal pain Status: Acute Plan CHF exacerbation Patient presented to the ER with SOB and leg edema CXR showed pulm edema with cardiomegaly Continue Isosorbide mononitrate, losartan and hydralazine Continue Lasix 40mg bid monitor renal function Acute hypoxemic respiratory failure no oxygen at baseline Currently on supplemental oxygen titrate oxygen with clinical course Abd pain Epigastric tenderness CT AP ordered tentatively on Protonix IV monitor Anemia Hb 9.2 Iron panel pending Monitor H and H CKD, stage V monitor DVT prophylaxis on Sq Heparin Full code SDM: Granddaughter, Jewel Avina Hospitalist MIPS Advance Care Plan I have confirmed that the patient's Advanced Care Plan is present, code status is documented, or surrogate decision maker is listed in patient medical record.: Yes Medication Reconciliation I have utilized all available resources to obtain, update and review the patients current medications (includes all prescriptions, OTC, herbals, cannabis, and nutritional supplements).: Yes
[2025-03-15] MEDS: ATORVASTATIN 40 MG TABLET PO (17:31)
[2025-03-15] MEDS: PANTOPRAZOLE SODIUM IV 40 MG VIAL IV PUSH (20:10)
[2025-03-15] MEDS: HYDROcodone/acetaminophen (*CRX) 5-325 MG TABLET 1 TAB PO (21:52)
[2025-03-15] MEDS: ONDANSETRON HCL ODT 4 MG TABLET PO (21:53)
[2025-03-16] VITALS (19 sets, daily range): BP systolic 113–159; BP diastolic 45–53; PULSE 60–72; RESP 18–20; TEMP 36.8–37.2; O2SAT 91–98
[2025-03-16 04:56] LABS: Hematocrit 29.0 % (37.0-47.0); Hemoglobin 8.8 g/dL (12.0-15.0); Immature Granulocyte Percent A 0.6 % (0-0.5); Lymphocytes Absolute Auto 1.14 K/mm3 (0.9-3.2); Mean Corpuscular HGB Conc 30.3 g/dl (32-36); Mean Corpuscular Hemoglobin 26.4 pg (26-34); Mean Corpuscular Volume 87.1 fl (80-100); Nucleated Red Blood Cells Absolute Auto 0.000 K/mm3 (0.0-0.012); Nucleated Red Blood Cells Perc 0.0 % (0.0-0.2); Platelet Count Result 246 k/mm3 (150-375); Red Blood Count 3.33 M/mm3 (4.2-5.4); White Blood Count 6.6 K/mm3 (4.5-10.0)
[2025-03-16 05:12] LABS: Alanine Aminotransferase 11 U/L (6-35); Albumin Level 2.6 g/dL (3.5-5.1); Alkaline Phosphatase 79 U/L (38-126); Anion Gap 5 mmol/L (4-12); Aspartate Amino Transferase 18 U/L (14-36); Bilirubin,Total 0.4 mg/dL (0.2-1.3); Blood Urea Nitrogen 43 mg/dL (7-17); Calcium 8.5 mg/dL (8.4-10.2); Carbon Dioxide 25 mmol/L (22-30); Chloride 105 mmol/L (98-107); Estimated Glomerular Filt Rate 14; Glucose 93 mg/dL (65-110); Magnesium 1.8 mg/dL (1.6-2.3); Potassium 3.6 mmol/L (3.4-5.0); Sodium 135 mmol/L (137-145); Total Protein 5.4 g/dL (6.3-8.2)
[2025-03-16 05:13] LABS: Creatine Kinase 109 U/L (30-135)
[2025-03-16 05:17] LABS: Iron 34 ug/dL (37-170)
[2025-03-16 05:27] LABS: Percent Iron Saturation 16 % (20-50)
[2025-03-16 05:48] LABS: Thyroid Stimulating Hormone Reflex 2.220 uIU/mL (0.465-4.68)
[2025-03-16 05:49] LABS: Hepatitis B Surface Antigen Negative (Negative)
[2025-03-16 05:53] LABS: Ferritin 164.00 ng/mL (11.1-264)
[2025-03-16 06:06] LABS: Hepatitis B Surface Anti Res Negative
[2025-03-16] MEDS: ASPIRIN 81 MG CHEWABLE TABLET PO (09:36)
[2025-03-16] MEDS: LOSARTAN POTASSIUM 25 MG TABLET PO (09:36)
[2025-03-16] MEDS: PANTOPRAZOLE SODIUM IV 40 MG VIAL IV PUSH ×2 (09:37→21:26)
[2025-03-16] MEDS: FUROSEMIDE INJ 40 MG/4 ML VIAL IV PUSH ×2 (09:37→16:13)
[2025-03-16] MEDS: ISOSORBIDE MONONITRATE 60 MG TAB.ER.24H PO (09:38)
[2025-03-16] MEDS: prednisoLONE ACETATE 1% OPHTH 5 ML 1 DROP LEFT EYE ×3 (09:44→21:28)
--- NOTE | 2025-03-16 11:15 | P.CONNP_ITS ---
Assessment and Plan Assessment and plan (1) Stage 5 chronic kidney disease: Code(s): N18.5 - Chronic kidney disease, stage 5 Status: Chronic Assessment and Plan: * baseline creatinine has been running ~ 3.2 - 3.9mg/dl in the last 4 months * significant fluctuations noted due to multiple hospitalizations in the last several months related to CHF/volume overload requiring more aggressive diuresis, infections (pneumonia), abdominal pain/nausea/vomiting...etc * not clear why she why she goes to so many different hospitals for her care.... 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 Gadiel Ibrahim * Dr. Yaw Loo * Dr. Cristian Brown ([facility]) -- most recently seen in January 2025 * given recurrent admissions for volume overload due to diastolic heart failure complicated by nephrotic syndrome in association with progressive decline in renal function, she will likely need renal replacement therapy/dialysis in the near future * on last office visit with Dr. Brown, she was referred to dialysis education as well as vein mapping for AV access as her living situation was not amenable to home/peritoneal dialysis (but notsure if any of this was ever done) * renal function/creatinine likely to fluctuate more with the need more aggressive diuresis to facilitate euvolemia (2) Acute hypoxic respiratory failure: Code(s): J96.01 - Acute respiratory failure with hypoxia Status: Acute Assessment and Plan: * felt to be secondary to volume overload/CHF * requiring supplemental oxygen at this time * continue current therapy * follow respiratory status (3) CHF exacerbation: Code(s): I50.9 - Heart failure, unspecified Status: Acute Assessment and Plan: * known history (recent admission here about a week ago) * recent Echo (on 03/09/25) noted: * left ventricular systolic function is normal, estimated at 50-55% * left ventricular diastolic function is grade I diastolic dysfunction * right ventricular systolic function is normal * mild mitral valve regurgitation * mild tricuspid valve regurgitation * small pericardial effusion * on IV diuretics * follow I/Os, daily weights, and respiratory status (4) Abdominal pain: Code(s): R10.9 - Unspecified abdominal pain Status: Acute Assessment and Plan: * looks like somewhat of a chronic issue... * recent hospitalization at [facility] for this issue (February 2025): * EGD - with no significant findings * colonoscopy - multiple polyps were removed * element of gastroparesis(?) * continue supportive therapy (5) Anemia: Code(s): D64.9 - Anemia, unspecified Status: Chronic Assessment and Plan: * related to chronic kidney disease * consider Epogen/GARRET while hospitalized * follow trend of H/H (6) Hypertension: Code(s): I10 - Essential (primary) hypertension Status: Chronic Assessment and Plan: * better control at this time * follow trend of hemodynamics (7) Diabetes: Code(s): E11.9 - Type 2 diabetes mellitus without complications Status: Chronic Assessment and Plan: * follow accu-cheks * glycemic control per hospitalist Greater than 20 minutes spent In reviewing the patient's electronic chart both here at [facility], and the numerous other hospitalizations in this area as noted ([facility], [facility] in [place], [facility] in [place]...etc). I will continue to follow the patient with you while he remains hospitalized and make further recommendations as deemed necessary. Thank you for allowing me to participate in the care of this patient. L History of Present Illness Reason for Consult Consult date: 03/16/25 Reason for consult: chronic renal failure Chief Complaint Chief complaint: CHF EXACERBATION,KIDNEY DISEASE History of Present Illness Narrative: Most of the history I have obtained is from review of the electronic medical records from her innumerable hospitalizations in the last several months at [facility], [facility], [facility], and here ([facility]) as I was unable to get the room assistant boiler operator to work and the patient does not speak Divehi along with the fact that I was unable to get ahold of any family members. Patient is a 59-year-old , non-Divehi speaking female with a past medical history as outlined who presented to [facility] ER with abdominal pain, shortness of breath, chest pain, and vomiting. Patient states that the symptoms have been going on for last 3 or 4 days. Other associated symptoms include intermittent back pain in association with vomiting which seems to be exacerbated whenever she is sleeping. She also endorses orthopnea and dyspnea with exertion. It should be noted the patient was just recently hospitalized here at [facility] for similar symptoms and she responded to conservative therapy in the form of IV diuresis which optimized her breathing/ respiratory status prior to discharge. she gives no other symptoms with regard to fevers, chills, dysuria, melena, hematochezia, or diarrhea. Workup and evaluation emergency room demonstrated the patient to be hemodynamically stable if not a bit hypertensive and in no acute distress. Routine blood work demonstrated a normal white blood cell count, hemoglobin 9.2 hematocrit 32.8 and normal platelet count. Her chemistry showed a sodium of 135 with a BUN of 46 and a creatinine of 3.49 with a glucose of 112 and albumin of 2.9. [place] proBNP [place] 50395 and her D-dimer was 0.86. Her urinalysis was significant for 4+ protein, 1+ glucose, trace ketones, 6-10 red blood cells, 6- 10 white blood cells. Her urine drug screen was negative for any illicit substances. Her chest x-ray demonstrated cardiomegaly with cardiac decompensation and pulmonary edema along with bibasilar atelectasis versus pneumonia. While she was in emergency room, her oxygen saturations declined 86% on room air but improved with addition of 2 L of oxygen by nasal cannula to 95%. She received IV diuretics and was subsequently admitted to the hospital for further evaluation and therapy. Since her admission, she states her respiratory status seems to be doing a bit better albeit at the expense of her renal function as evidence by the trend of her labs. Renal consultation was requested due to her chronic kidney disease. It would seem that the patient has chronic kidney disease is a well-established diagnosis and she has been following with outpatient Nephrology for management of this issue. As already outlined in my assessment plan, she has seen numerous butcher's assistant for this issue and has been admitted to multiple hospitalizations for her kidney disease as well. I am not entirely clear why she apparently goes to so many different hospitals since only different physicians for the same issue. She was last seen by [facility] and at that office visit, it was recommended that she attended education class about dialysis options with the likelihood that she would be a candidate for incenter hemodialysis as her living conditions were not amenable to home dialysis options including peritoneal dialysis. Currently, at the time my evaluation, she appears to be in no acute distress. Review of Systems 2 Review of Systems: As per HPI. [facility] Past Medical History Medical History (Updated 04/04/25 @ 16:00 by Hu Cazares MD) Leg swelling Congestive heart failure CKD (chronic kidney disease) Hyponatremia Renal insufficiency CHF exacerbation Anemia Hypertension Diabetes Surgical History Surgical History (Updated 04/04/25 @ 16:54 by Hu Cazares MD) Status post biopsy of kidney Family History Family History Other No significant past medical history Social History Social History Smoking status: Never smoker Alcohol intake: never Substance use: never Do You Feel Safe in your Home?: Yes Lack of Transportation: No Lack of Food: Never True Current Housing: Decline to Answer Concerned About Future Housing: No Difficulty Paying Gas/Electric Bills: No Difficulty Paying for Meds: No Currently Unemployed: No Education: High School Diploma/GED Difficulty w/ Childcare or Family Care: No Spiritual care concerns: No Meds Home Medications and Allergies Home Medications ?Medication ?Instructions ?Recorded ?Confirmed ?Type aspirin 81 mg chewable tablet 81 mg PO DAILY 03/08/25 03/15/25 History (Aspirin Childrens) atorvastatin 40 mg tablet 40 mg PO QPM 03/08/25 03/15/25 History blood sugar diagnostic (OneTouch 03/08/25 03/15/25 History Verio test strips) calcitriol 0.25 mcg capsule 0.25 mcg PO .Q MWF 03/08/25 03/15/25 History carvedilol 25 mg tablet 25 mg PO BID 03/08/25 03/15/25 History ergocalciferol (vitamin D2) 1,250 1,250 mcg PO WEEKLY 03/08/25 03/15/25 History mcg (50,000 unit) capsule famotidine 20 mg tablet 20 mg PO BID 03/08/25 03/15/25 History furosemide 40 mg tablet 40 mg PO DAILY 03/08/25 03/15/25 History gabapentin 100 mg capsule 100 mg PO BID 03/08/25 03/15/25 History hydralazine 50 mg tablet 75 mg PO TID 03/08/25 03/15/25 History hydroxyzine HCl 25 mg tablet 25 mg PO Q6H PRN itching 03/08/25 03/15/25 History isosorbide mononitrate 60 mg 60 mg PO DAILY 03/08/25 03/15/25 History tablet,extended release 24 hr lancets 33 gauge (OneTouch Delica 03/08/25 03/15/25 History Plus Lancet) losartan 100 mg tablet 25 mg PO DAILY 03/08/25 03/15/25 History ondansetron 4 mg disintegrating 4 mg PO Q6H PRN nausea and vomiting 03/08/25 03/15/25 History tablet pantoprazole 40 mg tablet,delayed 40 mg PO DAILY 03/08/25 03/15/25 History release prednisolone acetate 1 % eye 1 drp LEFT EYE TID 03/15/25 03/15/25 History drops,suspension Allergies Allergy/AdvReac Type Severity Reaction Status Date / Time No Known Allergies Allergy Verified 03/15/25 09:13 Vital Signs Vital Signs Temp Pulse Resp BP Pulse Ox 03/16/25 11:10 98.4 F 65 18 133/46 L 92 03/16/25 09:36 61 03/16/25 08:23 98.8 F 71 20 149/50 H 92 03/16/25 06:00 71 03/16/25 04:00 98.5 F 72 18 123/45 L 92 03/16/25 04:00 72 03/16/25 02:00 64 03/16/25 00:00 72 03/16/25 00:00 98.7 F 68 18 145/50 H 98 03/15/25 22:00 75 03/15/25 20:10 71 03/15/25 20:00 71 03/15/25 19:44 98.8 F 69 18 154/53 H 92 03/15/25 18:00 68 03/15/25 16:26 98.5 F 61 18 178/5 H 94 03/15/25 15:59 62 03/15/25 14:00 67 Exam 2 Narrative: GENERAL APPEARANCE: elderly but well developed/well nourished female in no acute distress HEENT: normocephalic, atraumatic, normal conjunctiva and sclera, nares patient NECK: no lymphadenopathy, thyromegaly, or JVD MOUTH: normal lips, teeth, and gums CARDIOVASCULAR: RRR, normal S1 and S2, no rub RESPIRATORY: clear anteriorly; decreased at bases with few crackles ABDOMEN: soft, mild epigastric/LUQ pain, positive bowel sounds present EXTREMITIES: no evidence of cyanosis, clubbing, 1+ edema NEUROLOGICAL: awake and alert; no focal deficits noted Results Lab Results 03/19/25 04:13 03/19/25 04:13 Lab results: Most recent lab results Calcium 8.5 mg/dL (8.4-10.2) 03/16/25 04:35 Magnesium 1.8 mg/dL (1.6-2.3) 03/16/25 04:35
[2025-03-16] MEDS: ONDANSETRON HCL ODT 4 MG TABLET PO (13:51)
[2025-03-16 13:56] LABS: Urea Random Urine 126 MG/DL
[2025-03-16 14:21] LABS: Total Protein Urine Random 413 mg/dL; Ur Ttl Prot Creatinine Ratio 18.03 mg/mg (0-0.20)
[2025-03-16 14:22] LABS: Total Protein Urine Random 421 mg/dL
--- NOTE | 2025-03-16 17:34 | P.PNIM_ITS ---
Progress Note: A&P Assessment and Plan (1) Congestive heart failure: Code(s): I50.9 - Heart failure, unspecified Status: Acute (2) Abdominal pain: Code(s): R10.9 - Unspecified abdominal pain Status: Acute Plan CHF exacerbation Patient presented to the ER with SOB and leg edema CXR showed pulm edema with cardiomegaly Continue Isosorbide mononitrate, losartan and hydralazine Continue Lasix 40mg bid monitor renal function Acute hypoxemic respiratory failure no oxygen at baseline Currently on supplemental oxygen titrate oxygen with clinical course Abd pain Epigastric tenderness CT AP ordered tentatively on Protonix IV monitor Anemia Hb 9.2 Iron panel pending Monitor H and H CKD, stage V monitor Patient with complaints of abdomen pain, CT scan of the abdomen is essentially normal except enlarged uterus. chest CT showed pulmonary edema as patient last echo shewed grade I diastolic CHF, patient is being diuresed and stats feels better however patient Scr is elevated patient is seen by telesales representative and further recommendation follow, will monitor. DVT prophylaxis on Sq Heparin Full code SDM: GranddaughterJewel Subjective Date/time seen: 03/16/25 17:34 Interval history: Chief Complaint: SOB, abd pain and vomiting H&P-Narrative: 59 yo female with PMH of CHF, DM2, CKD, and Hypertension who presented to ER on account of SOB and abd pain. Patient noted she has been having abd pain the past 3 days upper abdominal pain, 10/10 intensity, non radiating, associated with vomiting. Also complained of SOB and leg swelling. Noted that she is compliant with her medications. ER eval notable BP 184/68, on supplemental oxygen, labs notable for hb 9.2, Cr 3.49 which is baseline, NT-proBNP 29220, UDS negative. CXR showed cardiomegaly with cardiac decompensation and pulm edema. V/Q scan showed low for probability embolism. Patient was started on Lasix prior to admission. Patient with complaints of abdomen pain, CT scan of the abdomen is essentially normal except enlarged uterus. chest CT showed pulmonary edema as patient last echo shewed grade I diastolic CHF, patient is being diuresed and stats feels better however patient Scr is elevated patient is seen by telesales representative and further recommendation follow, will monitor. Review of Systems Review of Systems: All other systems were reviewed and negative except as noted in the HPI above. Exam Narrative: Moderately obese Patient is comfortable, NAD HEENT: eyes are clear and none icteric LUNGS: Bilateral fair entry with her rales and rhonchi HEART: RR S1S2 ABD: BS+, Soft and nontender Lower extremities: no edema SKIN: nonjaundiced Neuro: grossly intact. Objective Data Vital Signs Vital Signs: Vital Signs - 24 hr 03/15/25 18:00 03/15/25 19:44 03/15/25 20:00 Temperature 37.1 C Pulse Rate 68 69 71 Respiratory Rate 18 Blood Pressure 154/53 H Pulse Oximetry 92 03/15/25 20:10 03/15/25 22:00 03/16/25 00:00 Temperature 37.1 C Pulse Rate 71 75 68 Respiratory Rate 18 Blood Pressure 145/50 H Pulse Oximetry 98 03/16/25 00:00 03/16/25 02:00 03/16/25 04:00 Temperature Pulse Rate 72 64 72 Respiratory Rate Blood Pressure Pulse Oximetry 03/16/25 04:00 03/16/25 06:00 03/16/25 08:00 Temperature 36.9 C Pulse Rate 72 71 63 Respiratory Rate 18 Blood Pressure 123/45 L Pulse Oximetry 92 03/16/25 08:23 03/16/25 09:36 03/16/25 10:00 Temperature 37.1 C Pulse Rate 71 61 61 Respiratory Rate 20 Blood Pressure 149/50 H Pulse Oximetry 92 03/16/25 11:50 03/16/25 12:00 03/16/25 14:00 Temperature 36.9 C Pulse Rate 65 63 66 Respiratory Rate 18 Blood Pressure 133/46 L Pulse Oximetry 92 03/16/25 16:24 Temperature 36.8 C Pulse Rate 61 Respiratory Rate 20 Blood Pressure 131/48 L Pulse Oximetry 91 Intake/Output Intake/Output: Intake & Output 03/13/25 03/14/25 03/15/25 03/16/25 23:59 23:59 23:59 23:59 Intake Total 1100 1230 Output Total 900 1100 Balance 200 130 Meds/Results Medications: Active Medications Generic Name Dose Route Start Last Admin Trade Name Freq PRN Reason Stop Dose Admin Acetaminophen 650 mg 03/15/25 21:41 Acetaminophen 325 Mg Tablet PO Q6H PRN Mild Pain (1-3) or Fever Hydrocodone Bitart/Acetaminophen 1 tab 03/15/25 21:41 03/15/25 21:52 Hydrocodone/Acetaminophen (*Crx) 5-325 Mg Tablet PO 1 tab Q6H PRN Administration Pain Rated 4-6 Aspirin 81 mg 03/16/25 09:00 03/16/25 09:36 Aspirin 81 Mg Chewable Tablet PO 81 mg DAILY MINNA Administration Atorvastatin Calcium 40 mg 03/16/25 21:00 Atorvastatin 40 Mg Tablet PO HS [facility] Carvedilol 25 mg 03/15/25 21:00 03/16/25 09:36 Carvedilol 25 Mg Tablet PO 25 mg Q12HR MINNA Administration Furosemide 40 mg 03/15/25 17:00 03/16/25 16:13 Furosemide Inj 40 Mg/4 Ml Vial IV PUSH 40 mg BID MINNA Administration Heparin Sodium (Porcine) 5,000 units 03/15/25 22:00 03/16/25 13:52 Heparin Sodium 5,000 Units/Ml Vial SUB-Q 5,000 units Q8HR MINNA Administration Hydralazine HCl 75 mg 03/16/25 22:00 Hydralazine Hcl 25 Mg Tablet PO Q8HR [facility] Isosorbide Mononitrate 60 mg 03/16/25 09:00 03/16/25 09:38 Isosorbide Mononitrate 60 Mg Tab.Er.24h PO 60 mg DAILY [facility] Administration Losartan Potassium 25 mg 03/16/25 09:00 03/16/25 09:36 Losartan Potassium 25 Mg Tablet PO 25 mg DAILY MINNA Administration Melatonin 3 mg 03/16/25 21:00 Melatonin 3 Mg Tablet PO HS [facility] Ondansetron HCl 4 mg 03/15/25 21:41 03/16/25 13:51 Ondansetron Hcl Odt 4 Mg Tablet PO 4 mg Q6H PRN Administration Nausea And Vomiting Pantoprazole Sodium 40 mg 03/15/25 21:00 03/16/25 09:37 Pantoprazole Sodium Iv 40 Mg Vial IV PUSH 40 mg Q12HR [facility] Administration Prednisolone Acetate 1 drop 03/16/25 22:00 Prednisolone Acetate 1% Ophth 5 Ml LEFT EYE Q8HR [facility] Radiology Results: ITS Impressions Chest X-Ray 03/15/25 10:27 IMPRESSION: Cardiomegaly with cardiac decompensation and pulmonary edema. Bibasilar atelectasis versus pneumonia more in the left side. Pulmonary Perfusion Imaging 03/15/25 13:45 IMPRESSION: 1. Low probability for pulmonary embolism. Renal Ultrasound 03/15/25 15:33 IMPRESSION: No hydronephrosis or renal calculi. No sonographic evidence to suggest the presence of medical renal disease, as detailed above. Chest/Abdomen/Pelvis CT 03/15/25 17:48 IMPRESSION: Pulmonary opacities most likely representing pulmonary edema. Infection not excluded. Small bilateral pleural effusions. Cardiomegaly. Small pericardial effusion. Hepatomegaly. Enlarged uterus, probably secondary to fibroids. Trace free pelvic fluid. Moderate body wall edema. Labs Labs: Laboratory Results - last 24 hr 03/15/25 03/15/25 03/15/25 13:36 13:36 13:36 WBC RBC Hgb Hct MCV MCH MCHC RDW Plt Count MPV Immature Gran % (Auto) Neut % (Auto) Lymph % (Auto) [place] % (Auto) Eos % (Auto) Baso % (Auto) Lymph # (Auto) [place] # (Auto) Eos # (Auto) Baso # (Auto) Abs Immat Gran (auto) Absolute Neuts (auto) Absolute Nucleated RBC Nucleated RBC % Sodium Potassium Chloride Carbon Dioxide Anion Gap BUN Creatinine Estim Creat Clear Calc Estimated GFR Glucose Calcium Magnesium Iron TIBC % Saturation Ferritin Total Bilirubin AST ALT Alkaline Phosphatase Total Creatine Kinase Total Protein Albumin TSH (Reflex) U Random Total Protein 413 421 Ur Random Sodium 62 Ur Random Urea 126 Urine Creatinine 22.9 22.4 Protein/Creat Ratio 2 18.03 H Hep Bs Antigen Hep Bs Antibody 03/16/25 04:35 WBC 6.6 RBC 3.33 L Hgb 8.8 L Hct 29.0 L MCV 87.1 MCH 26.4 MCHC 30.3 L RDW 15.3 H Plt Count 246 MPV 10.3 Immature Gran % (Auto) 0.6 H Neut % (Auto) 67.2 Lymph % (Auto) 17.3 L [place] % (Auto) 10.0 H Eos % (Auto) 4.4 Baso % (Auto) 0.5 Lymph # (Auto) 1.14 [place] # (Auto) 0.7 H Eos # (Auto) 0.3 Baso # (Auto) 0.0 Abs Immat Gran (auto) 0.04 H Absolute Neuts (auto) 4.4 Absolute Nucleated RBC 0.000 Nucleated RBC % 0.0 Sodium 135 L Potassium 3.6 Chloride 105 Carbon Dioxide 25 Anion Gap 5 BUN 43 H Creatinine 3.45 H Estim Creat Clear Calc Not Reportable Estimated GFR 14 L Glucose 93 Calcium 8.5 Magnesium 1.8 Iron 34 L TIBC 211 L % Saturation 16 L Ferritin 164.00 Total Bilirubin 0.4 AST 18 ALT 11 Alkaline Phosphatase 79 Total Creatine Kinase 109 Total Protein 5.4 L Albumin 2.6 L TSH (Reflex) 2.220 U Random Total Protein Ur Random Sodium Ur Random Urea Urine Creatinine Protein/Creat Ratio 2 Hep Bs Antigen Negative Hep Bs Antibody Negative
[2025-03-16] MEDS: MELATONIN 3 MG TABLET PO (21:22)
[2025-03-16] MEDS: ATORVASTATIN 40 MG TABLET PO (21:22)
[2025-03-16] MEDS: HYDROcodone/acetaminophen (*CRX) 5-325 MG TABLET 1 TAB PO (23:48)
[2025-03-17] VITALS (23 sets, daily range): BP systolic 124–143; BP diastolic 44–55; PULSE 56–75; RESP 16–18; TEMP 36.6–37.1; O2SAT 93–99
[2025-03-17] MEDS: IPRATROPIUM 0.5 MG/ALBUTEROL SULFATE 2.5 MG AMPUL.NEB 3 ML INHALATION (00:17)
--- NOTE | 2025-03-17 02:13 | PM.EVENT ---
Event Note Event Note Event Note: I was called by the RN alon who had concerns regarding pt as she complained of having increased dyspnea with laying down. The sensation improved after sitting up. She has been admitted in the setting of having Fluid overload and Renal failure, and it has been difficult to get her to a euvolemic status. CXR was performed tonpuma that continues to show vascular congestion. Pt has received Lasix 40 mg twice today and an additional 20 mg is ordered at this time. VS were independently reviewed by myself and are stable. Pt will continue to be monitored and care resumed tomorrow by the hospitalist team for continued rounding and management.
[2025-03-17] MEDS: FUROSEMIDE INJ 40 MG/4 ML VIAL 20 MG IV PUSH (02:17)
[2025-03-17 04:34] LABS: Hematocrit 26.8 % (37.0-47.0); Hemoglobin 8.2 g/dL (12.0-15.0); Immature Granulocyte Percent A 0.2 % (0-0.5); Lymphocytes Absolute Auto 1.15 K/mm3 (0.9-3.2); Mean Corpuscular HGB Conc 30.6 g/dl (32-36); Mean Corpuscular Hemoglobin 26.4 pg (26-34); Mean Corpuscular Volume 86.2 fl (80-100); Nucleated Red Blood Cells Absolute Auto 0.000 K/mm3 (0.0-0.012); Nucleated Red Blood Cells Perc 0.0 % (0.0-0.2); Platelet Count Result 237 k/mm3 (150-375); Red Blood Count 3.11 M/mm3 (4.2-5.4); White Blood Count 4.8 K/mm3 (4.5-10.0)
[2025-03-17 04:45] LABS: Albumin Level 2.5 g/dL (3.5-5.1); Anion Gap 6 mmol/L (4-12); Blood Urea Nitrogen 44 mg/dL (7-17); Calcium 8.4 mg/dL (8.4-10.2); Carbon Dioxide 26 mmol/L (22-30); Chloride 103 mmol/L (98-107); Estimated Glomerular Filt Rate 12; Glucose 92 mg/dL (65-110); Potassium 3.5 mmol/L (3.4-5.0); Sodium 135 mmol/L (137-145)
[2025-03-17] MEDS: prednisoLONE ACETATE 1% OPHTH 5 ML 1 DROP LEFT EYE ×3 (05:29→20:35)
[2025-03-17] MEDS: ONDANSETRON HCL ODT 4 MG TABLET PO (10:10)
[2025-03-17] MEDS: LOSARTAN POTASSIUM 25 MG TABLET PO (10:11)
[2025-03-17] MEDS: PANTOPRAZOLE SODIUM IV 40 MG VIAL IV PUSH ×2 (10:12→20:34)
[2025-03-17] MEDS: BUMETANIDE INJ 1 MG/4 ML VIAL 2 MG IV PUSH ×3 (10:12→20:35)
[2025-03-17] MEDS: ASPIRIN 81 MG CHEWABLE TABLET PO (10:12)
[2025-03-17] MEDS: ISOSORBIDE MONONITRATE 60 MG TAB.ER.24H PO (10:12)
--- NOTE | 2025-03-17 14:30 | P.PNNP_ITS ---
Progress Note: A&P Assessment and Plan (1) Stage 5 chronic kidney disease: Code(s): N18.5 - Chronic kidney disease, stage 5 Status: Chronic Assessment and Plan: * baseline creatinine has been running ~ 3.2 - 3.9mg/dl in the last 4 months * significant fluctuations noted due to multiple hospitalizations in the last several months related to CHF/volume overload requiring more aggressive diuresis, infections (pneumonia), abdominal pain/nausea/vomiting...etc * not clear why she why she goes to so many different hospitals for her care.... 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 Gadiel Ibrahim * Dr. Yaw Loo * Dr. Cristian Brown ([facility]) -- most recently seen in January 2025 * given recurrent admissions for volume overload due to diastolic heart failure complicated by nephrotic syndrome in association with progressive decline in renal function, she will likely need renal replacement therapy/dialysis in the near future * on last office visit with Dr. Brown, she was referred to dialysis education as well as vein mapping for AV access as her living situation was not amenable to home/peritoneal dialysis (but notsure if any of this was ever done) * renal function/creatinine likely to fluctuate more with the need more aggressive diuresis to facilitate euvolemia (2) Acute hypoxic respiratory failure: Code(s): J96.01 - Acute respiratory failure with hypoxia Status: Acute Assessment and Plan: * felt to be secondary to volume overload/CHF * requiring supplemental oxygen at this time * continue current therapy * follow respiratory status (3) CHF exacerbation: Code(s): I50.9 - Heart failure, unspecified Status: Acute Assessment and Plan: * known history (recent admission here about a week ago) * recent Echo (on 03/09/25) noted: * left ventricular systolic function is normal, estimated at 50-55% * left ventricular diastolic function is grade I diastolic dysfunction * right ventricular systolic function is normal * mild mitral valve regurgitation * mild tricuspid valve regurgitation * small pericardial effusion * on IV diuretics * follow I/Os, daily weights, and respiratory status (4) Abdominal pain: Code(s): R10.9 - Unspecified abdominal pain Status: Acute Assessment and Plan: * looks like somewhat of a chronic issue... * recent hospitalization at [facility] for this issue (February 2025): * EGD - with no significant findings * colonoscopy - multiple polyps were removed * element of gastroparesis(?) * continue supportive therapy (5) Anemia: Code(s): D64.9 - Anemia, unspecified Status: Chronic Assessment and Plan: * related to chronic kidney disease * consider Epogen/GARRET while hospitalized * follow trend of H/H (6) Hypertension: Code(s): I10 - Essential (primary) hypertension Status: Chronic Assessment and Plan: * better control at this time * follow trend of hemodynamics (7) Diabetes: Code(s): E11.9 - Type 2 diabetes mellitus without complications Status: Chronic Assessment and Plan: * follow accu-cheks * glycemic control per hospitalist Long extensive discussion (greater than 25 minutes) with the patient as well as her extended family who also provided translation of the information that I provided. I discussed with all of them in detail her advanced kidney disease secondary to biopsy-proven diabetes and hypertension as noted by her last hospitalization at [facility]. I also voiced my concerns that given her recurrent hospitalizations for fluid overload and the need for IV diuretics, this will undoubtedly push her kidney function even harder and there is a strong possibility that she will likely require/need renal replacement therapy/dialysis in the near future. It seemed apparent to me that her family was not aware of the severity of her renal dysfunction until I outlined it for them today. I informed them that although I would continue conservative therapy to try and optimize her fluid status, I did once again voiced my concerns that she may require renal replacement therapy/dialysis if she fails to improve with these interventions. They all appeared to voice understanding. Will continue to follow. L Subjective Date/time seen: 03/17/25 14:30 Interval history: Follow-up for advanced chronic kidney disease. Renal function/creatinine a bit worse but not unexpected given need for diuretic therapy to improve her volume status; reports some improvement in her breathing/respiratory status; no acute distress noted; family meeting in room with multiple family members who did not seems the realize the severity of her illness regarding her kidney disease (see discussion below). Exam 2 Narrative: General: elderly but WD/WN female in NAD Heart: normal S1 and S2; no rub Lungs: bibasilar rales/rhonchi noted Abdomen: soft, nontender, nondistended, positive bowel sounds Extremities: no cyanosis or clubbing; trace edema Skin: warm and dry Objective Data Vital Signs Vital Signs: Vital Signs Temp Pulse Resp BP Pulse Ox O2 Del Method O2 Flow Rate 03/17/25 14:29 98.2 F 61 18 124/44 L 98 03/17/25 14:00 61 03/17/25 12:03 98.0 F 58 L 18 131/54 L 97 03/17/25 12:00 60 03/17/25 10:09 95 Nasal Cannula 2 03/17/25 10:00 58 L 03/17/25 08:14 98.8 F 63 18 143/55 H 95 03/17/25 08:00 63 03/17/25 06:00 57 L 03/17/25 04:00 56 L 03/17/25 04:00 99 Nasal Cannula 2 03/17/25 03:53 98.8 F 56 L 18 141/46 H 99 03/17/25 02:00 65 03/17/25 00:29 61 18 03/17/25 00:22 98 Nasal Cannula 2 03/17/25 00:20 60 18 03/17/25 00:00 Room Air 03/17/25 00:00 64 03/16/25 23:08 98.9 F 65 18 113/46 L 96 03/16/25 22:00 60 03/16/25 21:22 64 03/16/25 20:20 98.5 F 61 18 159/53 H 95 03/16/25 20:00 64 03/16/25 20:00 Room Air Intake/Output Intake/Output: Intake & Output 03/14/25 03/15/25 03/16/25 03/17/25 23:59 23:59 23:59 23:59 Intake Total 1100 1230 790 Output Total 900 1100 750 Balance 200 130 40 Meds/Results Medications: Active Medications Generic Name Dose Route Start Last Admin Trade Name Freq PRN Reason Stop Dose Admin Acetaminophen 650 mg 03/15/25 21:41 Acetaminophen 325 Mg Tablet PO Q6H PRN Mild Pain (1-3) or Fever Hydrocodone Bitart/Acetaminophen 1 tab 03/15/25 21:41 03/16/25 23:48 Hydrocodone/Acetaminophen (*Crx) 5-325 Mg Tablet PO 1 tab Q6H PRN Administration Pain Rated 4-6 Aspirin 81 mg 03/16/25 09:00 03/17/25 10:12 Aspirin 81 Mg Chewable Tablet PO 81 mg DAILY MINNA Administration Atorvastatin Calcium 40 mg 03/16/25 21:00 03/16/25 21:22 Atorvastatin 40 Mg Tablet PO 40 mg HS MINNA Administration Bumetanide 2 mg 03/17/25 09:00 03/17/25 17:24 Bumetanide Inj 1 Mg/4 Ml Vial IV PUSH 2 mg BID MINNA Administration Bumetanide 2 mg 03/17/25 21:00 Bumetanide Inj 1 Mg/4 Ml Vial IV PUSH 03/17/25 21:01 ONCE ONE Carvedilol 25 mg 03/15/25 21:00 03/17/25 10:11 Carvedilol 25 Mg Tablet PO 25 mg Q12HR MINNA Administration Heparin Sodium (Porcine) 5,000 units 03/15/25 22:00 03/17/25 15:17 Heparin Sodium 5,000 Units/Ml Vial SUB-Q 5,000 units Q8HR MINNA Administration Hydralazine HCl 75 mg 03/16/25 22:00 03/17/25 15:17 Hydralazine Hcl 25 Mg Tablet PO 75 mg Q8HR MINNA Administration Isosorbide Mononitrate 60 mg 03/16/25 09:00 03/17/25 10:12 Isosorbide Mononitrate 60 Mg Tab.Er.24h PO 60 mg DAILY MINNA Administration Losartan Potassium 25 mg 03/16/25 09:00 03/17/25 10:11 Losartan Potassium 25 Mg Tablet PO 25 mg DAILY MINNA Administration Melatonin 3 mg 03/16/25 21:00 03/16/25 21:22 Melatonin 3 Mg Tablet PO 3 mg HS MINNA Administration Metolazone 5 mg 03/17/25 21:00 Metolazone 5 Mg Tablet PO 03/17/25 21:01 ONCE ONE Ondansetron HCl 4 mg 03/15/25 21:41 03/17/25 10:10 Ondansetron Hcl Odt 4 Mg Tablet PO 4 mg Q6H PRN Administration Nausea And Vomiting Pantoprazole Sodium 40 mg 03/15/25 21:00 03/17/25 10:12 Pantoprazole Sodium Iv 40 Mg Vial IV PUSH 40 mg Q12HR MINNA Administration Prednisolone Acetate 1 drop 03/16/25 22:00 03/17/25 15:17 Prednisolone Acetate 1% Ophth 5 Ml LEFT EYE 1 drop Q8HR MINNA Administration Radiology Results: ITS Impressions Pulmonary Perfusion Imaging 03/15/25 13:45 IMPRESSION: 1. Low probability for pulmonary embolism. Renal Ultrasound 03/15/25 15:33 IMPRESSION: No hydronephrosis or renal calculi. No sonographic evidence to suggest the presence of medical renal disease, as detailed above. Chest/Abdomen/Pelvis CT 03/15/25 17:48 IMPRESSION: Pulmonary opacities most likely representing pulmonary edema. Infection not excluded. Small bilateral pleural effusions. Cardiomegaly. Small pericardial effusion. Hepatomegaly. Enlarged uterus, probably secondary to fibroids. Trace free pelvic fluid. Moderate body wall edema. Chest X-Ray 03/17/25 05:17 Impression: Possible minimal interstitial edema versus possibly chronic interstitial disease. Probable minimal right pleural effusion. Stable marked cardiomegaly. Pericardial effusion not excluded. Labs Labs: Laboratory Tests 03/17/25 04:14 03/17/25 04:14 Calcium 8.4 Phosphorus 4.8 H Albumin 2.5 L Microbiology 03/15/25 09:37 Urine Clean Catch Urine Culture Reflexed - Final
[2025-03-17 14:32] LABS: Kappa\\Lambda Light Chains 1.29 (0.26-1.65)
--- NOTE | 2025-03-17 18:36 | PM.IMPN ---
Progress Note: A&P Assessment and Plan (1) Congestive heart failure: Code(s): I50.9 - Heart failure, unspecified Status: Acute (2) Abdominal pain: Code(s): R10.9 - Unspecified abdominal pain Status: Acute Plan CHF exacerbation Patient presented to the ER with SOB and leg edema CXR showed pulm edema with cardiomegaly Continue Isosorbide mononitrate, losartan and hydralazine Continue Lasix 40mg bid monitor renal function Acute hypoxemic respiratory failure no oxygen at baseline Currently on supplemental oxygen titrate oxygen with clinical course Abd pain Epigastric tenderness CT AP ordered tentatively on Protonix IV monitor Anemia Hb 9.2 Iron panel pending Monitor H and H CKD, stage V monitor Patient with complaints of abdomen pain, CT scan of the abdomen is essentially normal except enlarged uterus. chest CT showed pulmonary edema as patient last echo shewed grade I diastolic CHF, patient is being diuresed and stats feels better however patient Scr is elevated patient is seen by geochemical laboratory technician and further recommendation follow, will monitor. today gave updates to angeline family who are present in the room, patient kidney function is chronic and not improving, patient is seen by geochemical laboratory technician and further recommendation to follow. DVT prophylaxis on Sq Heparin Full code SDM: daughterJewel Subjective Date/time seen: 03/17/25 18:36 Interval history: Chief Complaint: SOB, abd pain and vomiting H&P-Narrative: 59 yo female with PMH of CHF, DM2, CKD, and Hypertension who presented to ER on account of SOB and abd pain. Patient noted she has been having abd pain the past 3 days upper abdominal pain, 10/10 intensity, non radiating, associated with vomiting. Also complained of SOB and leg swelling. Noted that she is compliant with her medications. ER eval notable BP 184/68, on supplemental oxygen, labs notable for hb 9.2, Cr 3.49 which is baseline, NT-proBNP 29522, UDS negative. CXR showed cardiomegaly with cardiac decompensation and pulm edema. V/Q scan showed low for probability embolism. Patient was started on Lasix prior to admission. Patient with complaints of abdomen pain, CT scan of the abdomen is essentially normal except enlarged uterus. chest CT showed pulmonary edema as patient last echo shewed grade I diastolic CHF, patient is being diuresed and stats feels better however patient Scr is elevated patient is seen by geochemical laboratory technician and further recommendation follow, will monitor. today gave updates to patinet family who are present in the room, patient kidney function is chronic and not improving, patient is seen by geochemical laboratory technician and further recommendation to follow. Review of Systems Review of Systems: All other systems were reviewed and negative except as noted in the HPI above. Exam Narrative: Moderately obese Patient is comfortable, NAD HEENT: eyes are clear and none icteric LUNGS: Bilateral fair entry with her rales and rhonchi HEART: RR S1S2 ABD: BS+, Soft and nontender Lower extremities: no edema SKIN: nonjaundiced Neuro: grossly intact. Objective Data Vital Signs Vital Signs: Vital Signs - 24 hr 03/16/25 20:00 03/16/25 20:00 03/16/25 20:20 Temperature 36.9 C Pulse Rate 64 61 Respiratory Rate 18 Blood Pressure 159/53 H Pulse Oximetry 95 Oxygen Delivery Room Air Oxygen Flow Rate 03/16/25 21:22 03/16/25 22:00 03/16/25 23:08 Temperature 37.2 C Pulse Rate 64 60 65 Respiratory Rate 18 Blood Pressure 113/46 L Pulse Oximetry 96 Oxygen Delivery Oxygen Flow Rate 03/17/25 00:00 03/17/25 00:00 03/17/25 00:20 Temperature Pulse Rate 64 60 Respiratory Rate 18 Blood Pressure Pulse Oximetry Oxygen Delivery Room Air Oxygen Flow Rate 03/17/25 00:22 03/17/25 00:29 03/17/25 02:00 Temperature Pulse Rate 61 65 Respiratory Rate 18 Blood Pressure Pulse Oximetry 98 Oxygen Delivery Nasal Cannula Oxygen Flow Rate 2 03/17/25 03:53 03/17/25 04:00 03/17/25 04:00 Temperature 37.1 C Pulse Rate 56 L 56 L Respiratory Rate 18 Blood Pressure 141/46 H Pulse Oximetry 99 99 Oxygen Delivery Nasal Cannula Oxygen Flow Rate 2 03/17/25 06:00 03/17/25 08:00 03/17/25 08:14 Temperature 37.1 C Pulse Rate 57 L 63 63 Respiratory Rate 18 Blood Pressure 143/55 H Pulse Oximetry 95 Oxygen Delivery Oxygen Flow Rate 03/17/25 10:00 03/17/25 10:09 03/17/25 12:00 Temperature Pulse Rate 58 L 60 Respiratory Rate Blood Pressure Pulse Oximetry 95 Oxygen Delivery Nasal Cannula Oxygen Flow Rate 2 03/17/25 12:03 03/17/25 14:00 03/17/25 15:49 Temperature 36.7 C 36.8 C Pulse Rate 58 L 61 61 Respiratory Rate 18 18 Blood Pressure 131/54 L 124/44 L Pulse Oximetry 97 98 Oxygen Delivery Oxygen Flow Rate 03/17/25 16:00 03/17/25 18:00 Temperature Pulse Rate 64 60 Respiratory Rate Blood Pressure Pulse Oximetry Oxygen Delivery Oxygen Flow Rate Intake/Output Intake/Output: Intake & Output 03/14/25 03/15/25 03/16/25 03/17/25 23:59 23:59 23:59 23:59 Intake Total 1100 1230 790 Output Total 900 1100 750 Balance 200 130 40 Meds/Results Medications: Active Medications Generic Name Dose Route Start Last Admin Trade Name Freq PRN Reason Stop Dose Admin Acetaminophen 650 mg 03/15/25 21:41 Acetaminophen 325 Mg Tablet PO Q6H PRN Mild Pain (1-3) or Fever Hydrocodone Bitart/Acetaminophen 1 tab 03/15/25 21:41 03/16/25 23:48 Hydrocodone/Acetaminophen (*Crx) 5-325 Mg Tablet PO 1 tab Q6H PRN Administration Pain Rated 4-6 Aspirin 81 mg 03/16/25 09:00 03/17/25 10:12 Aspirin 81 Mg Chewable Tablet PO 81 mg DAILY MINNA Administration Atorvastatin Calcium 40 mg 03/16/25 21:00 03/16/25 21:22 Atorvastatin 40 Mg Tablet PO 40 mg HS MINNA Administration Bumetanide 2 mg 03/17/25 09:00 03/17/25 17:24 Bumetanide Inj 1 Mg/4 Ml Vial IV PUSH 2 mg BID MINNA Administration Carvedilol 25 mg 03/15/25 21:00 03/17/25 10:11 Carvedilol 25 Mg Tablet PO 25 mg Q12HR MINNA Administration Heparin Sodium (Porcine) 5,000 units 03/15/25 22:00 03/17/25 15:17 Heparin Sodium 5,000 Units/Ml Vial SUB-Q 5,000 units Q8HR MINNA Administration Hydralazine HCl 75 mg 03/16/25 22:00 03/17/25 15:17 Hydralazine Hcl 25 Mg Tablet PO 75 mg Q8HR MINNA Administration Isosorbide Mononitrate 60 mg 03/16/25 09:00 03/17/25 10:12 Isosorbide Mononitrate 60 Mg Tab.Er.24h PO 60 mg DAILY MINNA Administration Losartan Potassium 25 mg 03/16/25 09:00 03/17/25 10:11 Losartan Potassium 25 Mg Tablet PO 25 mg DAILY MINNA Administration Melatonin 3 mg 03/16/25 21:00 03/16/25 21:22 Melatonin 3 Mg Tablet PO 3 mg HS MINNA Administration Ondansetron HCl 4 mg 03/15/25 21:41 03/17/25 10:10 Ondansetron Hcl Odt 4 Mg Tablet PO 4 mg Q6H PRN Administration Nausea And Vomiting Pantoprazole Sodium 40 mg 03/15/25 21:00 03/17/25 10:12 Pantoprazole Sodium Iv 40 Mg Vial IV PUSH 40 mg Q12HR MINNA Administration Prednisolone Acetate 1 drop 03/16/25 22:00 03/17/25 15:17 Prednisolone Acetate 1% Ophth 5 Ml LEFT EYE 1 drop Q8HR MINNA Administration Radiology Results: ITS Impressions Pulmonary Perfusion Imaging 03/15/25 13:45 IMPRESSION: 1. Low probability for pulmonary embolism. Renal Ultrasound 03/15/25 15:33 IMPRESSION: No hydronephrosis or renal calculi. No sonographic evidence to suggest the presence of medical renal disease, as detailed above. Chest/Abdomen/Pelvis CT 03/15/25 17:48 IMPRESSION: Pulmonary opacities most likely representing pulmonary edema. Infection not excluded. Small bilateral pleural effusions. Cardiomegaly. Small pericardial effusion. Hepatomegaly. Enlarged uterus, probably secondary to fibroids. Trace free pelvic fluid. Moderate body wall edema. Chest X-Ray 03/17/25 05:17 Impression: Possible minimal interstitial edema versus possibly chronic interstitial disease. Probable minimal right pleural effusion. Stable marked cardiomegaly. Pericardial effusion not excluded. Labs Labs: Laboratory Results - last 24 hr 03/16/25 03/17/25 04:35 04:14 WBC 4.8 RBC 3.11 L Hgb 8.2 L Hct 26.8 L MCV 86.2 MCH 26.4 MCHC 30.6 L RDW 15.4 H Plt Count 237 MPV 10.6 H Immature Gran % (Auto) 0.2 Neut % (Auto) 54.2 Lymph % (Auto) 24.0 [place] % (Auto) 16.0 H Eos % (Auto) 5.2 H Baso % (Auto) 0.4 Lymph # (Auto) 1.15 [place] # (Auto) 0.8 H Eos # (Auto) 0.3 Baso # (Auto) 0.0 Abs Immat Gran (auto) 0.01 Absolute Neuts (auto) 2.6 Absolute Nucleated RBC 0.000 Nucleated RBC % 0.0 Sodium 135 L Potassium 3.5 Chloride 103 Carbon Dioxide 26 Anion Gap 6 BUN 44 H Creatinine 3.75 H Estim Creat Clear Calc Not Reportable Estimated GFR 12 L Glucose 92 Calcium 8.4 Phosphorus 4.8 H Total Protein 4.7 L Albumin 2.5 L [place]/Lambda Ratio 1.29 Free [place] Light Chains 93.2 H Free [place] Light Chain 72.4 H Hep B Core Total Ab Non-reactive
[2025-03-17] MEDS: ATORVASTATIN 40 MG TABLET PO (20:33)
[2025-03-17] MEDS: MELATONIN 3 MG TABLET PO (20:34)
[2025-03-18] VITALS (16 sets, daily range): BP systolic 142–162; BP diastolic 54–58; PULSE 58–75; RESP 16–18; TEMP 36.3–37.2; O2SAT 95–100
[2025-03-18] MEDS: HYDROcodone/acetaminophen (*CRX) 5-325 MG TABLET 1 TAB PO ×2 (02:14→22:01)
[2025-03-18] MEDS: ONDANSETRON HCL ODT 4 MG TABLET PO ×2 (02:16→09:55)
[2025-03-18 03:24] LABS: Creatinine, Random Urine 25 mg/dL (20-275); Total Prot/Creat ratio mg/mg 13.560 (0.024-0.184); Total Protein/Creatinine Ratio 13560 mg/g creat (24-184)
[2025-03-18 04:31] LABS: Hematocrit 28.7 % (37.0-47.0); Hemoglobin 8.7 g/dL (12.0-15.0); Immature Granulocyte Percent A 0.2 % (0-0.5); Lymphocytes Absolute Auto 1.05 K/mm3 (0.9-3.2); Mean Corpuscular HGB Conc 30.3 g/dl (32-36); Mean Corpuscular Hemoglobin 26.2 pg (26-34); Mean Corpuscular Volume 86.4 fl (80-100); Nucleated Red Blood Cells Absolute Auto 0.000 K/mm3 (0.0-0.012); Nucleated Red Blood Cells Perc 0.0 % (0.0-0.2); Platelet Count Result 244 k/mm3 (150-375); Red Blood Count 3.32 M/mm3 (4.2-5.4); White Blood Count 5.3 K/mm3 (4.5-10.0)
[2025-03-18 04:41] LABS: Albumin Level 2.8 g/dL (3.5-5.1); Anion Gap 6 mmol/L (4-12); Blood Urea Nitrogen 44 mg/dL (7-17); Calcium 8.5 mg/dL (8.4-10.2); Carbon Dioxide 26 mmol/L (22-30); Chloride 102 mmol/L (98-107); Estimated Glomerular Filt Rate 12; Glucose 103 mg/dL (65-110); Potassium 3.5 mmol/L (3.4-5.0); Sodium 134 mmol/L (137-145)
[2025-03-18] MEDS: prednisoLONE ACETATE 1% OPHTH 5 ML 1 DROP LEFT EYE ×3 (06:19→22:02)
[2025-03-18 08:09] LABS: Albumin 2.2 g/dL (3.8-4.8); Gamma Globulin 0.7 g/dL (0.8-1.7)
[2025-03-18] MEDS: ASPIRIN 81 MG CHEWABLE TABLET PO (09:48)
[2025-03-18] MEDS: ISOSORBIDE MONONITRATE 60 MG TAB.ER.24H PO (09:48)
[2025-03-18] MEDS: LOSARTAN POTASSIUM 25 MG TABLET PO (09:48)
[2025-03-18] MEDS: BUMETANIDE INJ 1 MG/4 ML VIAL 2 MG IV PUSH ×2 (09:49→17:32)
[2025-03-18] MEDS: PANTOPRAZOLE SODIUM IV 40 MG VIAL IV PUSH ×2 (09:49→22:02)
--- NOTE | 2025-03-18 09:55 | P.PNNP_ITS ---
Progress Note: A&P Assessment and Plan (1) Stage 5 chronic kidney disease: Code(s): N18.5 - Chronic kidney disease, stage 5 Status: Chronic Assessment and Plan: * baseline creatinine has been running ~ 3.2 - 3.9mg/dl in the last 4 months * significant fluctuations noted due to multiple hospitalizations in the last several months related to CHF/volume overload requiring more aggressive diuresis, infections (pneumonia), abdominal pain/nausea/vomiting...etc * not clear why she why she goes to so many different hospitals for her care.... 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 Gadiel Ibrahim * Dr. Yaw Loo * Dr. Cristian Brown ([facility]) -- most recently seen in January 2025 * given recurrent admissions for volume overload due to diastolic heart failure complicated by nephrotic syndrome in association with progressive decline in renal function, she will likely need renal replacement therapy/dialysis in the near future * on last office visit with Dr. Brown, she was referred to dialysis education as well as vein mapping for AV access as her living situation was not amenable to home/peritoneal dialysis (but notsure if any of this was ever done) * renal function/creatinine likely to fluctuate more with the need more aggressive diuresis to facilitate euvolemia * however, no immediate/urgent need for [employer]/dialysis at this time (stable electrolytes, stable acid-base status, no evidence of uremia and volume status improving with diuretic therapy) (2) Acute hypoxic respiratory failure: Code(s): J96.01 - Acute respiratory failure with hypoxia Status: Acute Assessment and Plan: * felt to be secondary to volume overload/CHF * requiring supplemental oxygen at this time * continue current therapy * follow respiratory status (3) CHF exacerbation: Code(s): I50.9 - Heart failure, unspecified Status: Acute Assessment and Plan: * known history (recent admission here about a week ago) * recent Echo (on 03/09/25) noted: * left ventricular systolic function is normal, estimated at 50-55% * left ventricular diastolic function is grade I diastolic dysfunction * right ventricular systolic function is normal * mild mitral valve regurgitation * mild tricuspid valve regurgitation * small pericardial effusion * on IV diuretics * follow I/Os, daily weights, and respiratory status (4) Abdominal pain: Code(s): R10.9 - Unspecified abdominal pain Status: Acute Assessment and Plan: * looks like somewhat of a chronic issue... * recent hospitalization at [facility] for this issue (February 2025): * EGD - with no significant findings * colonoscopy - multiple polyps were removed * element of gastroparesis(?) * continue supportive therapy (5) Anemia: Code(s): D64.9 - Anemia, unspecified Status: Chronic Assessment and Plan: * related to chronic kidney disease * consider Epogen/GARRET while hospitalized * follow trend of H/H (6) Hypertension: Code(s): I10 - Essential (primary) hypertension Status: Chronic Assessment and Plan: * better control at this time * follow trend of hemodynamics (7) Diabetes: Code(s): E11.9 - Type 2 diabetes mellitus without complications Status: Chronic Assessment and Plan: * follow accu-cheks * glycemic control per hospitalist Will continue to follow. L Subjective Date/time seen: 03/18/25 09:55 Interval history: Follow-up for chronic kidney disease. Renal function/creatinine a bit worse in the context of aggressive IV diuresis but breathing/respiratory status has improved significantly -- weaned to room air at the time of my visit; no other acute issues/events overnight or earlier this morning. Exam 2 Narrative: General: elderly but WD/WN female in NAD Heart: normal S1 and S2; no rub Lungs: bibasilar rales/rhonchi noted Abdomen: soft, nontender, nondistended, positive bowel sounds Extremities: no cyanosis or clubbing; trace edema Skin: warm and dry Objective Data Vital Signs Vital Signs: Vital Signs Temp Pulse Resp BP Pulse Ox O2 Del Method O2 Flow Rate 03/18/25 09:48 68 03/18/25 08:00 65 03/18/25 07:52 98.9 F 63 16 153/54 H 97 03/18/25 06:00 60 03/18/25 04:00 75 03/18/25 04:00 98.1 F 64 16 142/56 H 100 03/18/25 04:00 95 Nasal Cannula 1 03/18/25 02:00 64 03/18/25 00:00 67 03/18/25 00:00 Room Air 03/17/25 23:47 97.9 F 75 16 141/44 H 95 03/17/25 22:00 67 03/17/25 20:34 64 03/17/25 20:22 93 Room Air 03/17/25 20:00 64 03/17/25 20:00 Room Air 03/17/25 20:00 97.9 F 63 16 135/47 L 95 Intake/Output Intake/Output: Intake & Output 03/15/25 03/16/25 03/17/25 03/18/25 23:59 23:59 23:59 23:59 Intake Total 1100 1230 1030 662 Output Total 900 1797 933 5073 Balance 200 130 280 -438 Meds/Results Medications: Active Medications Generic Name Dose Route Start Last Admin Trade Name Freq PRN Reason Stop Dose Admin Acetaminophen 650 mg 03/15/25 21:41 Acetaminophen 325 Mg Tablet PO Q6H PRN Mild Pain (1-3) or Fever Hydrocodone Bitart/Acetaminophen 1 tab 03/15/25 21:41 03/18/25 02:14 Hydrocodone/Acetaminophen (*Crx) 5-325 Mg Tablet PO 1 tab Q6H PRN Administration Pain Rated 4-6 Aspirin 81 mg 03/16/25 09:00 03/18/25 09:48 Aspirin 81 Mg Chewable Tablet PO 81 mg DAILY MINNA Administration Atorvastatin Calcium 40 mg 03/16/25 21:00 03/17/25 20:33 Atorvastatin 40 Mg Tablet PO 40 mg HS MINNA Administration Bumetanide 2 mg 03/17/25 09:00 03/18/25 17:32 Bumetanide Inj 1 Mg/4 Ml Vial IV PUSH 2 mg BID MINNA Administration Carvedilol 25 mg 03/15/25 21:00 03/18/25 09:48 Carvedilol 25 Mg Tablet PO 25 mg Q12HR MINNA Administration Heparin Sodium (Porcine) 5,000 units 03/15/25 22:00 03/18/25 15:13 Heparin Sodium 5,000 Units/Ml Vial SUB-Q 5,000 units Q8HR MINNA Administration Hydralazine HCl 75 mg 03/16/25 22:00 03/18/25 15:12 Hydralazine Hcl 25 Mg Tablet PO 75 mg Q8HR MINNA Administration Isosorbide Mononitrate 60 mg 03/16/25 09:00 03/18/25 09:48 Isosorbide Mononitrate 60 Mg Tab.Er.24h PO 60 mg DAILY MINNA Administration Losartan Potassium 25 mg 03/16/25 09:00 03/18/25 09:48 Losartan Potassium 25 Mg Tablet PO 25 mg DAILY MINNA Administration Melatonin 3 mg 03/16/25 21:00 03/17/25 20:34 Melatonin 3 Mg Tablet PO 3 mg HS MINNA Administration Metolazone 5 mg 03/18/25 09:00 03/18/25 09:55 Metolazone 5 Mg Tablet PO 5 mg QAM MINNA Administration Ondansetron HCl 4 mg 03/15/25 21:41 03/18/25 09:55 Ondansetron Hcl Odt 4 Mg Tablet PO 4 mg Q6H PRN Administration Nausea And Vomiting Pantoprazole Sodium 40 mg 03/15/25 21:00 03/18/25 09:49 Pantoprazole Sodium Iv 40 Mg Vial IV PUSH 40 mg Q12HR MINNA Administration Polyethylene Glycol 17 gm 03/18/25 14:00 03/18/25 15:13 Polyethylene Glycol 3350 17 Gm Powd.Pack PO 17 gm QAM MINNA Administration Prednisolone Acetate 1 drop 03/16/25 22:00 03/18/25 15:13 Prednisolone Acetate 1% Ophth 5 Ml LEFT EYE 1 drop Q8HR MINNA Administration Senna/Docusate Sodium 1 tab 03/18/25 14:00 03/18/25 15:12 Senna/Docusate Sodium Tablet PO 1 tab Q12HR MINNA Administration Radiology Results: ITS Impressions Pulmonary Perfusion Imaging 03/15/25 13:45 IMPRESSION: 1. Low probability for pulmonary embolism. Renal Ultrasound 03/15/25 15:33 IMPRESSION: No hydronephrosis or renal calculi. No sonographic evidence to suggest the presence of medical renal disease, as detailed above. Chest/Abdomen/Pelvis CT 03/15/25 17:48 IMPRESSION: Pulmonary opacities most likely representing pulmonary edema. Infection not excluded. Small bilateral pleural effusions. Cardiomegaly. Small pericardial effusion. Hepatomegaly. Enlarged uterus, probably secondary to fibroids. Trace free pelvic fluid. Moderate body wall edema. Labs Labs: Laboratory Tests 03/18/25 04:23 03/18/25 04:23 Glucose 103 Calcium 8.5 Phosphorus 4.5 Albumin 2.8 L
[2025-03-18] MEDS: SENNA/DOCUSATE SODIUM TABLET 1 TAB PO ×2 (15:12→22:01)
--- NOTE | 2025-03-18 17:33 | PM.IMPN ---
Progress Note: A&P Assessment and Plan (1) Congestive heart failure: Code(s): I50.9 - Heart failure, unspecified Status: Acute (2) Abdominal pain: Code(s): R10.9 - Unspecified abdominal pain Status: Acute Plan CHF exacerbation Patient presented to the ER with SOB and leg edema CXR showed pulm edema with cardiomegaly Continue Isosorbide mononitrate, losartan and hydralazine Continue Lasix 40mg bid monitor renal function Acute hypoxemic respiratory failure no oxygen at baseline Currently on supplemental oxygen titrate oxygen with clinical course Abd pain Epigastric tenderness CT AP ordered tentatively on Protonix IV monitor Anemia Hb 9.2 Iron panel pending Monitor H and H CKD, stage V monitor Patient with complaints of abdomen pain, CT scan of the abdomen is essentially normal except enlarged uterus. chest CT showed pulmonary edema as patient last echo shewed grade I diastolic CHF, patient Scr is elevated patient is seen by treatment counselor patient is being diuresed with Bumex 2mg IV BID and Metolzone 5mg PO qdaily, will monitor patient kidney function. patient stats feels better, will monitor. patient kidney function is chronic and not improving, patient is seen by treatment counselor and further recommendation to follow. DVT prophylaxis on Sq Heparin Full code SDM: daughterJewel Subjective Date/time seen: 03/18/25 17:33 Interval history: Chief Complaint: SOB, abd pain and vomiting H&P-Narrative: 59 yo female with PMH of CHF, DM2, CKD, and Hypertension who presented to ER on account of SOB and abd pain. Patient noted she has been having abd pain the past 3 days upper abdominal pain, 10/10 intensity, non radiating, associated with vomiting. Also complained of SOB and leg swelling. Noted that she is compliant with her medications. ER eval notable BP 184/68, on supplemental oxygen, labs notable for hb 9.2, Cr 3.49 which is baseline, NT-proBNP 41278, UDS negative. CXR showed cardiomegaly with cardiac decompensation and pulm edema. V/Q scan showed low for probability embolism. Patient was started on Lasix prior to admission. Patient with complaints of abdomen pain, CT scan of the abdomen is essentially normal except enlarged uterus. chest CT showed pulmonary edema as patient last echo shewed grade I diastolic CHF, patient Scr is elevated patient is seen by treatment counselor patient is being diuresed with Bumex 2mg IV BID and Metolzone 5mg PO qdaily, will monitor patient kidney function. patient stats feels better, will monitor. patient kidney function is chronic and not improving, patient is seen by treatment counselor and further recommendation to follow. Review of Systems Review of Systems: All other systems were reviewed and negative except as noted in the HPI above. Exam Narrative: Moderately obese Patient is comfortable, NAD HEENT: eyes are clear and none icteric LUNGS: Bilateral fair entry with her rales and rhonchi HEART: RR S1S2 ABD: BS+, Soft and nontender Lower extremities: no edema SKIN: nonjaundiced Neuro: grossly intact. Objective Data Vital Signs Vital Signs: Vital Signs - 24 hr 03/17/25 18:00 03/17/25 20:00 03/17/25 20:00 Temperature 36.6 C Pulse Rate 60 63 Respiratory Rate 16 Blood Pressure 135/47 L Pulse Oximetry 95 Oxygen Delivery Room Air Oxygen Flow Rate 03/17/25 20:00 03/17/25 20:22 03/17/25 20:34 Temperature Pulse Rate 64 64 Respiratory Rate Blood Pressure Pulse Oximetry 93 Oxygen Delivery Room Air Oxygen Flow Rate 03/17/25 22:00 03/17/25 23:47 03/18/25 00:00 Temperature 36.6 C Pulse Rate 67 75 Respiratory Rate 16 Blood Pressure 141/44 H Pulse Oximetry 95 Oxygen Delivery Room Air Oxygen Flow Rate 03/18/25 00:00 03/18/25 02:00 03/18/25 04:00 Temperature Pulse Rate 67 64 Respiratory Rate Blood Pressure Pulse Oximetry 95 Oxygen Delivery Nasal Cannula Oxygen Flow Rate 1 03/18/25 04:00 03/18/25 04:00 03/18/25 06:00 Temperature 36.7 C Pulse Rate 64 75 60 Respiratory Rate 16 Blood Pressure 142/56 H Pulse Oximetry 100 Oxygen Delivery Oxygen Flow Rate 03/18/25 07:52 03/18/25 08:00 03/18/25 09:48 Temperature 37.2 C Pulse Rate 63 65 68 Respiratory Rate 16 Blood Pressure 153/54 H Pulse Oximetry 97 Oxygen Delivery Oxygen Flow Rate 03/18/25 10:00 03/18/25 11:56 03/18/25 12:00 Temperature 36.3 C L Pulse Rate 64 63 66 Respiratory Rate 18 Blood Pressure 162/54 H Pulse Oximetry 96 Oxygen Delivery Oxygen Flow Rate 03/18/25 14:00 03/18/25 16:00 Temperature 36.9 C Pulse Rate 58 L 65 Respiratory Rate 18 Blood Pressure 159/58 H Pulse Oximetry 97 Oxygen Delivery Oxygen Flow Rate Intake/Output Intake/Output: Intake & Output 03/15/25 03/16/25 03/17/25 03/18/25 23:59 23:59 23:59 23:59 Intake Total 1100 1230 1030 662 Output Total 900 4335 250 5002 Balance 200 130 280 -438 Meds/Results Medications: Active Medications Generic Name Dose Route Start Last Admin Trade Name Freq PRN Reason Stop Dose Admin Acetaminophen 650 mg 03/15/25 21:41 Acetaminophen 325 Mg Tablet PO Q6H PRN Mild Pain (1-3) or Fever Hydrocodone Bitart/Acetaminophen 1 tab 03/15/25 21:41 03/18/25 02:14 Hydrocodone/Acetaminophen (*Crx) 5-325 Mg Tablet PO 1 tab Q6H PRN Administration Pain Rated 4-6 Aspirin 81 mg 03/16/25 09:00 03/18/25 09:48 Aspirin 81 Mg Chewable Tablet PO 81 mg DAILY MINNA Administration Atorvastatin Calcium 40 mg 03/16/25 21:00 03/17/25 20:33 Atorvastatin 40 Mg Tablet PO 40 mg HS MINNA Administration Bumetanide 2 mg 03/17/25 09:00 03/18/25 17:32 Bumetanide Inj 1 Mg/4 Ml Vial IV PUSH 2 mg BID MINNA Administration Carvedilol 25 mg 03/15/25 21:00 03/18/25 09:48 Carvedilol 25 Mg Tablet PO 25 mg Q12HR MINNA Administration Heparin Sodium (Porcine) 5,000 units 03/15/25 22:00 03/18/25 15:13 Heparin Sodium 5,000 Units/Ml Vial SUB-Q 5,000 units Q8HR MINNA Administration Hydralazine HCl 75 mg 03/16/25 22:00 03/18/25 15:12 Hydralazine Hcl 25 Mg Tablet PO 75 mg Q8HR MINNA Administration Isosorbide Mononitrate 60 mg 03/16/25 09:00 03/18/25 09:48 Isosorbide Mononitrate 60 Mg Tab.Er.24h PO 60 mg DAILY MINNA Administration Losartan Potassium 25 mg 03/16/25 09:00 03/18/25 09:48 Losartan Potassium 25 Mg Tablet PO 25 mg DAILY MINNA Administration Melatonin 3 mg 03/16/25 21:00 03/17/25 20:34 Melatonin 3 Mg Tablet PO 3 mg HS MINNA Administration Metolazone 5 mg 03/18/25 09:00 03/18/25 09:55 Metolazone 5 Mg Tablet PO 5 mg QAM MINNA Administration Ondansetron HCl 4 mg 03/15/25 21:41 03/18/25 09:55 Ondansetron Hcl Odt 4 Mg Tablet PO 4 mg Q6H PRN Administration Nausea And Vomiting Pantoprazole Sodium 40 mg 03/15/25 21:00 03/18/25 09:49 Pantoprazole Sodium Iv 40 Mg Vial IV PUSH 40 mg Q12HR MINNA Administration Polyethylene Glycol 17 gm 03/18/25 14:00 03/18/25 15:13 Polyethylene Glycol 3350 17 Gm Powd.Pack PO 17 gm QAM MINNA Administration Prednisolone Acetate 1 drop 03/16/25 22:00 03/18/25 15:13 Prednisolone Acetate 1% Ophth 5 Ml LEFT EYE 1 drop Q8HR MINNA Administration Senna/Docusate Sodium 1 tab 03/18/25 14:00 03/18/25 15:12 Senna/Docusate Sodium Tablet PO 1 tab Q12HR MINNA Administration Radiology Results: ITS Impressions Pulmonary Perfusion Imaging 03/15/25 13:45 IMPRESSION: 1. Low probability for pulmonary embolism. Renal Ultrasound 03/15/25 15:33 IMPRESSION: No hydronephrosis or renal calculi. No sonographic evidence to suggest the presence of medical renal disease, as detailed above. Chest/Abdomen/Pelvis CT 03/15/25 17:48 IMPRESSION: Pulmonary opacities most likely representing pulmonary edema. Infection not excluded. Small bilateral pleural effusions. Cardiomegaly. Small pericardial effusion. Hepatomegaly. Enlarged uterus, probably secondary to fibroids. Trace free pelvic fluid. Moderate body wall edema. Chest X-Ray 03/18/25 14:58 IMPRESSION: 1. Very small bilateral pleural effusions with mild bibasilar atelectasis. 2. Cardiomegaly. Abdomen X-Ray 03/18/25 15:02 IMPRESSION: 1. Moderate to large amount of colonic stool which could be seen with constipation. No dilated bowel to suggest obstruction. 2. A couple intramuscular dystrophic calcifications with appearance suggestive of chronic muscular cysticercosis. Labs Labs: Laboratory Results - last 24 hr 03/15/25 03/16/25 03/18/25 13:36 04:35 04:23 WBC 5.3 RBC 3.32 L Hgb 8.7 L Hct 28.7 L MCV 86.4 MCH 26.2 MCHC 30.3 L RDW 15.1 H Plt Count 244 MPV 10.3 Immature Gran % (Auto) 0.2 Neut % (Auto) 63.6 Lymph % (Auto) 19.8 Dare % (Auto) 11.1 H Eos % (Auto) 4.9 H Baso % (Auto) 0.4 Lymph # (Auto) 1.05 Dare # (Auto) 0.6 Eos # (Auto) 0.3 Baso # (Auto) 0.0 Abs Immat Gran (auto) 0.01 Absolute Neuts (auto) 3.4 Absolute Nucleated RBC 0.000 Nucleated RBC % 0.0 Sodium 134 L Potassium 3.5 Chloride 102 Carbon Dioxide 26 Anion Gap 6 BUN 44 H Creatinine 3.93 H Estim Creat Clear Calc Not Reportable Estimated GFR 12 L Glucose 103 Calcium 8.5 Phosphorus 4.5 Albumin 2.2 L 2.8 L Ayguj-0-Iimuytotl 0.3 Xebuz-6-Krvixnhzg 0.9 Mzqo-8-Rszyxfok 0.3 L Yexh-6-Qdoanghb 0.3 Gamma Globulins 0.7 L PEP Interpretation See note Ur Random Creatinine 25 U Random Total Protein 339 H Protein/Creatinin Ratio 97355 H
[2025-03-18] MEDS: ONDANSETRON INJ 4 MG/2 ML VIAL IV PUSH (21:10)
[2025-03-18] MEDS: MELATONIN 3 MG TABLET PO (22:01)
[2025-03-18] MEDS: ATORVASTATIN 40 MG TABLET PO (22:02)
[2025-03-18] MEDS: guaiFENesin 600 MG/DEXTROMETHORPHAN 30 MG SR TAB 12 HR 1 TAB PO (22:02)
[2025-03-19] VITALS (11 sets, daily range): BP systolic 144–173; BP diastolic 44–57; PULSE 59–70; RESP 12–24; TEMP 36.7–36.9; O2SAT 95–99
[2025-03-19 04:47] LABS: Hematocrit 28.9 % (37.0-47.0); Hemoglobin 8.8 g/dL (12.0-15.0); Immature Granulocyte Percent A 0.6 % (0-0.5); Lymphocytes Absolute Auto 1.06 K/mm3 (0.9-3.2); Mean Corpuscular HGB Conc 30.4 g/dl (32-36); Mean Corpuscular Hemoglobin 26.0 pg (26-34); Mean Corpuscular Volume 85.3 fl (80-100); Nucleated Red Blood Cells Absolute Auto 0.000 K/mm3 (0.0-0.012); Nucleated Red Blood Cells Perc 0.0 % (0.0-0.2); Platelet Count Result 242 k/mm3 (150-375); Red Blood Count 3.39 M/mm3 (4.2-5.4); White Blood Count 5.1 K/mm3 (4.5-10.0)
[2025-03-19 05:10] LABS: Albumin Level 2.9 g/dL (3.5-5.1); Anion Gap 7 mmol/L (4-12); Blood Urea Nitrogen 44 mg/dL (7-17); Calcium 8.5 mg/dL (8.4-10.2); Carbon Dioxide 26 mmol/L (22-30); Chloride 99 mmol/L (98-107); Estimated Glomerular Filt Rate 11; Glucose 91 mg/dL (65-110); Potassium 3.3 mmol/L (3.4-5.0); Sodium 132 mmol/L (137-145)
[2025-03-19] MEDS: ONDANSETRON INJ 4 MG/2 ML VIAL IV PUSH ×2 (06:19→12:33)
[2025-03-19] MEDS: prednisoLONE ACETATE 1% OPHTH 5 ML 1 DROP LEFT EYE ×2 (06:20→16:03)
--- NOTE | 2025-03-19 06:38 | PC.NURSE ---
Pt reports nausea/vomiting for two days. Pt had no complaints throughout the night, however she reports to her family she was vomiting. Gave pt zofran before bed which pt reported helped her. My tech and I checked in with pt throughout shift, and pt verbalized no complaints or needs and we used a latin american studies professor to communicate. Pt instructed to call nurse if she was vomiting through the night, or if she had a BM. Pt did not call or report either, however told her family this morning she was up vomiting water and that she had a large BM. This nurse has not seen any vomit or been able to assess anything that pt reports to be bringing up.
[2025-03-19 07:11] LABS: Magnesium 1.9 mg/dL (1.6-2.3)
--- NOTE | 2025-03-19 09:15 | P.PNNP_ITS ---
Progress Note: A&P Assessment and Plan (1) Stage 5 chronic kidney disease: Code(s): N18.5 - Chronic kidney disease, stage 5 Status: Chronic Assessment and Plan: * baseline creatinine has been running ~ 3.2 - 3.9mg/dl in the last 4 months * significant fluctuations noted due to multiple hospitalizations in the last several months related to CHF/volume overload requiring more aggressive diuresis, infections (pneumonia), abdominal pain/nausea/vomiting...etc * not clear why she why she goes to so many different hospitals for her care.... 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 Gadiel Ibrahim * Dr. Yaw Loo * Dr. Cristian Brown ([facility]) -- most recently seen in January 2025 * given recurrent admissions for volume overload due to diastolic heart failure complicated by nephrotic syndrome in association with progressive decline in renal function, she will likely need renal replacement therapy/dialysis in the near future * on last office visit with Dr. Brown, she was referred to dialysis education as well as vein mapping for AV access as her living situation was not amenable to home/peritoneal dialysis (but notsure if any of this was ever done) * renal function/creatinine likely to fluctuate more with the need more aggressive diuresis to facilitate euvolemia * however, no immediate/urgent need for FLY TIER/dialysis at this time (stable electrolytes, stable acid-base status, no evidence of uremia and volume status improving with diuretic therapy) (2) Acute hypoxic respiratory failure: Code(s): J96.01 - Acute respiratory failure with hypoxia Status: Acute Assessment and Plan: * felt to be secondary to volume overload/CHF * requiring supplemental oxygen at this time * continue current therapy * follow respiratory status (3) CHF exacerbation: Code(s): I50.9 - Heart failure, unspecified Status: Acute Assessment and Plan: * known history (recent admission here about a week ago) * recent Echo (on 03/09/25) noted: * left ventricular systolic function is normal, estimated at 50-55% * left ventricular diastolic function is grade I diastolic dysfunction * right ventricular systolic function is normal * mild mitral valve regurgitation * mild tricuspid valve regurgitation * small pericardial effusion * on IV diuretics * follow I/Os, daily weights, and respiratory status (4) Abdominal pain: Code(s): R10.9 - Unspecified abdominal pain Status: Acute Assessment and Plan: * looks like somewhat of a chronic issue... * recent hospitalization at [facility] for this issue (February 2025): * EGD - with no significant findings * colonoscopy - multiple polyps were removed * element of gastroparesis(?) * continue supportive therapy (5) Anemia: Code(s): D64.9 - Anemia, unspecified Status: Chronic Assessment and Plan: * related to chronic kidney disease * consider Epogen/GARRET while hospitalized * follow trend of H/H (6) Hypertension: Code(s): I10 - Essential (primary) hypertension Status: Chronic Assessment and Plan: * better control at this time * follow trend of hemodynamics (7) Diabetes: Code(s): E11.9 - Type 2 diabetes mellitus without complications Status: Chronic Assessment and Plan: * follow accu-cheks * glycemic control per hospitalist Will continue to follow. Subjective Date/time seen: 03/19/25 09:15 Interval history: Follow-up for chronic kidney disease. Apparently issues with nausea and vomiting overnight but patient did not let anyone know about these symptoms except her family; breathing/respiratory status seems stable; renal function/creatinine a bit worse with ongoing attempts at diuresis. Exam Narrative: General: elderly but WD/WN female in NAD Heart: normal S1 and S2; no rub Lungs: bibasilar rales/rhonchi noted Abdomen: soft, nontender, nondistended, positive bowel sounds Extremities: no cyanosis or clubbing; trace edema Skin: warm and intact Objective Data Vital Signs Vital Signs: Vital Signs Temp Pulse Resp BP Pulse Ox O2 Del Method 03/19/25 08:00 98.1 F 63 24 H 165/52 H 96 03/19/25 06:00 60 03/19/25 04:00 63 03/19/25 04:00 Room Air 03/19/25 04:00 98.5 F 61 15 147/52 H 99 03/19/25 02:00 64 03/19/25 00:00 66 03/19/25 00:00 Room Air 03/19/25 00:00 98.4 F 70 16 144/44 H 98 03/18/25 22:00 68 03/18/25 20:46 95 Room Air 03/18/25 20:00 68 03/18/25 20:00 Room Air 03/18/25 20:00 98.6 F 69 16 158/58 H 96 03/18/25 18:00 69 03/18/25 16:00 69 03/18/25 16:00 98.5 F 65 18 159/58 H 97 Intake/Output Intake/Output: Intake & Output 03/16/25 03/17/25 03/18/25 03/19/25 23:59 23:59 23:59 23:59 Intake Total 1230 1030 1202 0 Output Total 4579 892 3796 Balance 130 280 -548 0 Meds/Results Medications: Active Medications Generic Name Dose Route Start Last Admin Trade Name Freq PRN Reason Stop Dose Admin Acetaminophen 650 mg 03/15/25 21:41 Acetaminophen 325 Mg Tablet PO Q6H PRN Mild Pain (1-3) or Fever Hydrocodone Bitart/Acetaminophen 1 tab 03/15/25 21:41 03/18/25 22:01 Hydrocodone/Acetaminophen (*Crx) 5-325 Mg Tablet PO 1 tab Q6H PRN Administration Pain Rated 4-6 Aspirin 81 mg 03/16/25 09:00 03/19/25 10:01 Aspirin 81 Mg Chewable Tablet PO 81 mg DAILY MINNA Administration Atorvastatin Calcium 40 mg 03/16/25 21:00 03/18/25 22:02 Atorvastatin 40 Mg Tablet PO 40 mg HS MINNA Administration Benzocaine 1 lozenge 03/19/25 10:19 03/19/25 12:40 Benzocaine/Menthol (*Bkc) 18 Ea Lozenge PO 1 lozenge PRN PRN Administration Sore Throat Bumetanide 1 mg/ Bumetanide 0. 1.5 mg 03/19/25 09:00 03/19/25 10:00 5 mg PO 1.5 mg DAILY MINNA Administration Carvedilol 25 mg 03/15/25 21:00 03/19/25 10:00 Carvedilol 25 Mg Tablet PO 25 mg Q12HR MINNA Administration Guaifenesin/Dextromethorphan 1 tab 03/18/25 22:00 03/19/25 10:00 Guaifenesin 600 Mg/Dextromethorphan 30 Mg Sr Tab 12 Hr PO 1 tab Q12HR MINNA Administration Heparin Sodium (Porcine) 5,000 units 03/15/25 22:00 03/19/25 06:30 Heparin Sodium 5,000 Units/Ml Vial SUB-Q Not Given Q8HR MINNA Hydralazine HCl 75 mg 03/16/25 22:00 03/19/25 09:52 Hydralazine Hcl 25 Mg Tablet PO Not Given Q8HR MINNA Isosorbide Mononitrate 60 mg 03/16/25 09:00 03/19/25 10:00 Isosorbide Mononitrate 60 Mg Tab.Er.24h PO 60 mg DAILY MINNA Administration Losartan Potassium 25 mg 03/16/25 09:00 03/19/25 10:00 Losartan Potassium 25 Mg Tablet PO 25 mg DAILY MINNA Administration Melatonin 3 mg 03/16/25 21:00 03/18/25 22:01 Melatonin 3 Mg Tablet PO 3 mg HS MINNA Administration Ondansetron HCl 4 mg 03/18/25 21:01 03/19/25 12:33 Ondansetron Inj 4 Mg/2 Ml Vial IV PUSH 4 mg Q6H PRN Administration Nausea And Vomiting Pantoprazole Sodium 40 mg 03/15/25 21:00 03/19/25 10:01 Pantoprazole Sodium Iv 40 Mg Vial IV PUSH 40 mg Q12HR MINNA Administration Polyethylene Glycol 17 gm 03/18/25 14:00 03/19/25 10:01 Polyethylene Glycol 3350 17 Gm Powd.Pack PO 17 gm QAM MINNA Administration Prednisolone Acetate 1 drop 03/16/25 22:00 03/19/25 06:20 Prednisolone Acetate 1% Ophth 5 Ml LEFT EYE 1 drop Q8HR MINNA Administration Senna/Docusate Sodium 1 tab 03/18/25 14:00 03/19/25 10:00 Senna/Docusate Sodium Tablet PO 1 tab Q12HR MINNA Administration Radiology Results: ITS Impressions Pulmonary Perfusion Imaging 03/15/25 13:45 IMPRESSION: 1. Low probability for pulmonary embolism. Renal Ultrasound 03/15/25 15:33 IMPRESSION: No hydronephrosis or renal calculi. No sonographic evidence to suggest the presence of medical renal disease, as detailed above. Chest/Abdomen/Pelvis CT 03/15/25 17:48 IMPRESSION: Pulmonary opacities most likely representing pulmonary edema. Infection not excluded. Small bilateral pleural effusions. Cardiomegaly. Small pericardial effusion. Hepatomegaly. Enlarged uterus, probably secondary to fibroids. Trace free pelvic fluid. Moderate body wall edema. Chest X-Ray 03/18/25 14:58 IMPRESSION: 1. Very small bilateral pleural effusions with mild bibasilar atelectasis. 2. Cardiomegaly. Abdomen X-Ray 03/18/25 15:02 IMPRESSION: 1. Moderate to large amount of colonic stool which could be seen with constipation. No dilated bowel to suggest obstruction. 2. A couple intramuscular dystrophic calcifications with appearance suggestive of chronic muscular cysticercosis. Labs Labs: Vital Signs Temp Pulse Resp BP Pulse Ox O2 Del Method 03/19/25 12:00 98.2 F 60 20 163/57 H 95 03/19/25 10:00 61 03/19/25 08:00 98.1 F 63 24 H 165/52 H 96 03/19/25 06:00 60 03/19/25 04:00 63 03/19/25 04:00 Room Air 03/19/25 04:00 98.5 F 61 15 147/52 H 99 03/19/25 02:00 64 03/19/25 00:00 66 03/19/25 00:00 Room Air 03/19/25 00:00 98.4 F 70 16 144/44 H 98 03/18/25 22:00 68 03/18/25 20:46 95 Room Air 03/18/25 20:00 68 03/18/25 20:00 Room Air 03/18/25 20:00 98.6 F 69 16 158/58 H 96 03/18/25 18:00 69 03/18/25 16:00 69 03/18/25 16:00 98.5 F 65 18 159/58 H 97
[2025-03-19] MEDS: LOSARTAN POTASSIUM 25 MG TABLET PO (10:00)
[2025-03-19] MEDS: SENNA/DOCUSATE SODIUM TABLET 1 TAB PO (10:00)
[2025-03-19] MEDS: guaiFENesin 600 MG/DEXTROMETHORPHAN 30 MG SR TAB 12 HR 1 TAB PO (10:00)
[2025-03-19] MEDS: ISOSORBIDE MONONITRATE 60 MG TAB.ER.24H PO (10:00)
[2025-03-19] MEDS: BUMETANIDE PO 1 MG, BUMETANIDE PO 0.5 MG 1.5 MG PO (10:00)
[2025-03-19] MEDS: EPOETIN ALFA-EPBX 20,000 UNITS/ML VIAL 20000 UNITS SUB-Q (10:01)
[2025-03-19] MEDS: POTASSIUM CHLORIDE 20 MEQ ER TABLET PO ×2 (10:01→16:03)
[2025-03-19] MEDS: PANTOPRAZOLE SODIUM IV 40 MG VIAL IV PUSH (10:01)
[2025-03-19] MEDS: ASPIRIN 81 MG CHEWABLE TABLET PO (10:01)
[2025-03-19] MEDS: BENZOCAINE/MENTHOL (*BKC) 18 EA LOZENGE 1 LOZENGE PO (12:40)
--- NOTE | 2025-03-19 17:10 | P.TS_ITS ---
Transfer Discharge Sum: Prov Provider Date of admission: 03/15/25 11:05 Primary care physician: Scarlett Castro, Admitting clinician: Nitin Gaytan MD Consults: 03/15/25 11:08 Consult to Physician Routine Comment: Consulting Provider: Hu Cazares plodding machine operator/MD group to consult: nephrology Reason for consultation: elevated creatinine and BUN Has provider been notified: Yes DS: Admitting Diagnosis Discharge Date 03/19/25 Admitting Diagnosis SOB, abd pain and vomiting DS: Discharge Diagnosis Discharge Diagnosis (1) Congestive heart failure: Code(s): I50.9 - Heart failure, unspecified Status: Acute (2) Abdominal pain: Code(s): R10.9 - Unspecified abdominal pain Status: Acute Plan CHF exacerbation Patient presented to the ER with SOB and leg edema CXR showed pulm edema with cardiomegaly Continue Isosorbide mononitrate, losartan and hydralazine Continue Lasix 40mg bid monitor renal function Acute hypoxemic respiratory failure no oxygen at baseline Currently on supplemental oxygen titrate oxygen with clinical course Abd pain Epigastric tenderness CT AP ordered tentatively on Protonix IV monitor Anemia Hb 9.2 Iron panel pending Monitor H and H CKD, stage V monitor Patient with complaints of abdomen pain, CT scan of the abdomen is essentially normal except enlarged uterus. chest CT showed pulmonary edema as patient last echo shewed grade I diastolic CHF, patient Scr is elevated patient is seen by live in caregiver patient is being diuresed with Bumex 2mg IV BID and Metolzone 5mg PO qdaily, will monitor patient kidney function. patient stats feels better, will monitor. patient kidney function is chronic and not improving, patient is seen by live in caregiver and further recommendation to follow. DVT prophylaxis on Sq Heparin Full code SDM: GranddaughterJewel Transfer Discharge Sum: Med Medications Active and Home Medications: Home Medications aspirin 81 mg chewable tablet (Aspirin Childrens) 81 mg PO DAILY 03/08/25 [History Confirmed 03/15/25] atorvastatin 40 mg tablet 40 mg PO QPM 03/08/25 [History Confirmed 03/15/25] blood sugar diagnostic (EZChipuch Verio test strips) 03/08/25 [History Confirmed 03/15/25] calcitriol 0.25 mcg capsule 0.25 mcg PO .Q MWF 03/08/25 [History Confirmed 03/15/25] carvedilol 25 mg tablet 25 mg PO BID 03/08/25 [History Confirmed 03/15/25] ergocalciferol (vitamin D2) 1,250 mcg (50,000 unit) capsule 1,250 mcg PO WEEKLY 03/08/25 [History Confirmed 03/15/25] famotidine 20 mg tablet 20 mg PO BID 03/08/25 [History Confirmed 03/15/25] furosemide 40 mg tablet 40 mg PO DAILY 03/08/25 [History Confirmed 03/15/25] gabapentin 100 mg capsule 100 mg PO BID 03/08/25 [History Confirmed 03/15/25] hydralazine 50 mg tablet 75 mg PO TID 03/08/25 [History Confirmed 03/15/25] hydroxyzine HCl 25 mg tablet 25 mg PO Q6H PRN itching 03/08/25 [History Confirmed 03/15/25] isosorbide mononitrate 60 mg tablet,extended release 24 hr 60 mg PO DAILY 03/08/25 [History Confirmed 03/15/25] lancets 33 gauge (OneTouch Delica Plus Lancet) 03/08/25 [History Confirmed 03/15/25] losartan 100 mg tablet 25 mg PO DAILY 03/08/25 [History Confirmed 03/15/25] ondansetron 4 mg disintegrating tablet 4 mg PO Q6H PRN nausea and vomiting 03/08/25 [History Confirmed 03/15/25] pantoprazole 40 mg tablet,delayed release 40 mg PO DAILY 03/08/25 [History Confirmed 03/15/25] prednisolone acetate 1 % eye drops,suspension 1 drp LEFT EYE TID 03/15/25 [History Confirmed 03/15/25] Active Medications Acetaminophen (Acetaminophen 325 Mg Tablet) 650 mg PO Q6H PRN PRN Reason: Mild Pain (1-3) or Fever Hydrocodone Bitart/Acetaminophen (Hydrocodone/Acetaminophen (*Crx) 5-325 Mg Tablet) 1 tab PO Q6H PRN PRN Reason: Pain Rated 4-6 Last Admin: 03/18/25 22:01 Dose: 1 tab Aspirin (Aspirin 81 Mg Chewable Tablet) 81 mg PO DAILY IMNNA Last Admin: 03/19/25 10:01 Dose: 81 mg Atorvastatin Calcium (Atorvastatin 40 Mg Tablet) 40 mg PO HS [facility] Last Admin: 03/18/25 22:02 Dose: 40 mg Benzocaine (Benzocaine/Menthol (*Bkc) 18 Ea Lozenge) 1 lozenge PO PRN PRN PRN Reason: Sore Throat Last Admin: 03/19/25 12:40 Dose: 1 lozenge Bumetanide 1 mg/ Bumetanide 0. (5 mg) 1.5 mg PO DAILY [facility] Last Admin: 03/19/25 10:00 Dose: 1.5 mg Carvedilol (Carvedilol 25 Mg Tablet) 25 mg PO Q12HR [facility] Last Admin: 03/19/25 10:00 Dose: 25 mg Guaifenesin/Dextromethorphan (Guaifenesin 600 Mg/Dextromethorphan 30 Mg Sr Tab 12 Hr) 1 tab PO Q12HR [facility] Last Admin: 03/19/25 10:00 Dose: 1 tab Heparin Sodium (Porcine) (Heparin Sodium 5,000 Units/Ml Vial) 5,000 units SUB-Q Q8HR [facility] Last Admin: 03/19/25 16:03 Dose: 5,000 units Hydralazine HCl (Hydralazine Hcl 25 Mg Tablet) 75 mg PO Q8HR [facility] Last Admin: 03/19/25 16:03 Dose: 75 mg Isosorbide Mononitrate (Isosorbide Mononitrate 60 Mg Tab.Er.24h) 60 mg PO DAILY [facility] Last Admin: 03/19/25 10:00 Dose: 60 mg Losartan Potassium (Losartan Potassium 25 Mg Tablet) 25 mg PO DAILY [facility] Last Admin: 03/19/25 10:00 Dose: 25 mg Melatonin (Melatonin 3 Mg Tablet) 3 mg PO HS [facility] Last Admin: 03/18/25 22:01 Dose: 3 mg Ondansetron HCl (Ondansetron Inj 4 Mg/2 Ml Vial) 4 mg IV PUSH Q6H PRN PRN Reason: Nausea And Vomiting Last Admin: 03/19/25 12:33 Dose: 4 mg Pantoprazole Sodium (Pantoprazole Sodium Iv 40 Mg Vial) 40 mg IV PUSH Q12HR [facility] Last Admin: 03/19/25 10:01 Dose: 40 mg Polyethylene Glycol (Polyethylene Glycol 3350 17 Gm Powd.Pack) 17 gm PO QAM [facility] Last Admin: 03/19/25 10:01 Dose: 17 gm Prednisolone Acetate (Prednisolone Acetate 1% Ophth 5 Ml) 1 drop LEFT EYE Q8HR [facility] Last Admin: 03/19/25 16:03 Dose: 1 drop Senna/Docusate Sodium (Senna/Docusate Sodium Tablet) 1 tab PO Q12HR [facility] Last Admin: 03/19/25 10:00 Dose: 1 tab Transfer Discharge Sum: Hosp Hospital Course Hospital course: Suzy Lion is a 59 year old female hospitalist Dr. Moss, Manager Distribution Dr. Silva Patient with complaints of abdomen pain, CT scan of the abdomen is essentially normal except enlarged uterus. chest CT showed pulmonary edema as patient last echo shewed grade I diastolic CHF, patient Scr is elevated patient is seen by live in caregiver patient is being diuresed with Bumex 2mg IV BID and Metolzone 5mg PO qdaily, will monitor patient kidney function. patient stats feels better, will monitor. patient kidney function is chronic and not improving, patient is seen by live in caregiver and further recommendation to follow. patient kidney function is not improving, discuss with her live in caregiver recommended to transfer patient to [facility] as patient has a live in caregiver at the hospital, called [facility] and discussed the with Dr. Silva, live in caregiver fellow and he reviewed her chart and accepted the patient for further evaluation and treatment. will transfer the patient. Patient Condition: Stable Time Spent with Patient Time attestation: Total time spent providing and/or coordinating transfer services: Exam Narrative: Moderately obese Patient is comfortable, NAD HEENT: eyes are clear and none icteric LUNGS: Bilateral fair entry with her rales and rhonchi HEART: RR S1S2 ABD: BS+, Soft and nontender Lower extremities: no edema SKIN: nonjaundiced Neuro: grossly intact. DS: Data Data Completed and Pending Labs on day of discharge: Labs from last 24 hours 03/19/25 03/19/25 07:34 04:13 WBC 5.1 RBC 3.39 L Hgb 8.8 L Hct 28.9 L MCV 85.3 MCH 26.0 MCHC 30.4 L RDW 15.0 H Plt Count 242 MPV 10.7 H Immature Gran % (Auto) 0.6 H Neut % (Auto) 61.3 Lymph % (Auto) 21.0 Grant % (Auto) 14.5 H Eos % (Auto) 2.2 Baso % (Auto) 0.4 Lymph # (Auto) 1.06 Grant # (Auto) 0.7 H Eos # (Auto) 0.1 Baso # (Auto) 0.0 Abs Immat Gran (auto) 0.03 Absolute Neuts (auto) 3.1 Absolute Nucleated RBC 0.000 Nucleated RBC % 0.0 Sodium 132 L Potassium 3.3 L Chloride 99 Carbon Dioxide 26 Anion Gap 7 BUN 44 H Creatinine 4.18 H Estim Creat Clear Calc Not Reportable Estimated GFR 11 L Glucose 91 POC Capillary Glucose 91 Calcium 8.5 Phosphorus 4.4 Magnesium 1.9 Albumin 2.9 L
== END 2025-03-19 22:50 | disposition short-term general hospital (02) | DRG 194 ==
LOC: ANHED 09:25 → ANHIMU 16:46
PROVIDERS: Emergency Medicine; Internal Medicine; Internal Medicine Nephrology; Admitting Provider Internal Medicine; Emergency Provider Registered Nurse; PCP Family Medicine; Visit Provider Family Medicine
DX: I13.2 Hypertensive heart and chronic kidney disease with heart failure and with stage 5 chronic kidney disease, or end stage renal disease (principal); I50.33 Acute on chronic diastolic (congestive) heart failure; N18.5 Chronic kidney disease, stage 5; E11.22 Type 2 diabetes mellitus with diabetic chronic kidney disease; J96.01 Acute respiratory failure with hypoxia; R10.9 Unspecified abdominal pain; D64.9 Anemia, unspecified
CPT/HCPCS: 36415; 71045; 71046; 71250; 74018; 74176; 76775; 78582; 80053; 80069; 80307; 81001; 81050; 82550; 82570; 82728; 82948; 83521; 83540; 83550; 83690; 83735; 83880; 84155; 84156; 84165; 84166; 84300; 84443; 84484; 84540; 85025; 85055; 85380; 85610; 85730; 86704; 86706; 87086; 87340; 93005; 94640; 96361; 96374; 96375; 96376; 99285; A9270; A9540; A9558; J1644; J1938; J1939; J2270; J2405; J2470; J7030; Q5105